=== PATIENT | female | born 1940 | race Caucasian/White ===

== ENCOUNTER → 2016-08-05 | Outpatient (CLI) | payer MEDICARE, OTHER ==
[~2016-08-05] MED LIST: AMIO200 PO; AMLO5TAB22 PO; APIX2.5T PO; APIX5 PO; DEXI60CA PO; FEMH0.5T PO; FLAG500T PO; GABA300C5 PO; HYDR25TA5 PO; LEVA500T PO; LEVO100T5 PO; LISI-363 PO; LISI-519 PO; MACR100C PO; METO100T9 PO; MIRA25TA PO; MIRA50TA PO; MODA200T12 PO; NITR1CAP36 PO; ONDA1TAB16 PO; PACE200T PO; PROV200T11 PO; SPIR25TA PO; TERI14TA PO; VAGI10TA VAGINAL; VESI10TA4 PO
[2016-08-05 11:33] LABS: EOSINOPHIL % 0.4 % (0.0-4.0); HEMATOCRIT 31.5 % (35.0-46.0); HEMO FLAGS DIFF FINAL; LYMPH % 31.7 % (9.0-44.0); LYMPHOCYTE # 1.3 TH/MM3 (1.0-4.8); MEAN CELL VOLUME 81.4 FL (80.0-100.0); MEAN CORPUSCULAR HEMOGLOBIN 26.4 PG (27.0-34.0); MEAN CORPUSCULAR HGB CONC 32.5 % (32.0-36.0); MONO % 18.7 % (0.0-8.0); NEUT % 48.2 % (16.0-70.0); PLATELET COUNT 224 TH/MM3 (150-450); RED BLOOD COUNT 3.87 MIL/MM3 (4.00-5.30); RED CELL DISTRIBUTION WIDTH 15.5 % (11.6-17.2); WHITE BLOOD COUNT 4.2 TH/MM3 (4.0-11.0)
[2016-08-05 11:58] LABS: INDIRECT BILIRUBIN 0.2 MG/DL (0.0-0.8); TOTAL BILIRUBIN ADULT 0.3 MG/DL (0.2-1.0)
== END ==
LOC: CLAB 11:03
PROVIDERS: ATTEND Psychiatry & Neurology Neurology
DX: D64.9 Anemia, unspecified (principal); K72.90 Hepatic failure, unspecified without coma
CPT/HCPCS: 36415; 80076; 85025

== ENCOUNTER 2016-08-13 15:04 | Observation (INO) | payer MEDICARE, OTHER ==
[~2016-08-13] VITALS: Ht 160 cm; Wt 56.0 kg
[~2016-08-13 15:04] MED LIST changes: -APIX2.5T PO; -DEXI60CA PO; -GABA300C5 PO; -HYDR25TA5 PO; -LEVO100T5 PO; -LISI-519 PO; -MIRA50TA PO; -MODA200T12 PO; -NITR1CAP36 PO; -ONDA1TAB16 PO; -PACE200T PO
[2016-08-13 15:06] VITALS: BP 169/76; PULSE 68; RESP 18; TEMP 98; O2SAT 96
[2016-08-13 15:21] VITALS: BP 135/63; PULSE 68; RESP 18; O2SAT 96
--- NOTE | 2016-08-13 15:55 | PD ---
HPI Chief Complaint: Syncope/Near-Syncope Time Seen by Provider: 15:49 Travel History International Travel<30 days: No Contact w/Intl Traveler<30days: No Traveled to known affect area: No History of Present Illness HPI 76-year-old female that presents to the ED for evaluation of syncope. 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 Patient apparently had an episode of dizziness, nausea and then all she remembers is waking up on the floor. Per patient she's had an episode like this about a year ago and she thinks that she attributed to that her blood pressure. Per patient she usually has very high blood pressure the 200s. She does have a history of MS. She denies any chest pain or shortness of breath. She denies any weakness other than some numbness and tingling that is chronic for her from her MS. She denies hitting her head but she doesn't remember what happened. Per patient a friend of hers was on the gift shop and is the one who called medical eval. She denies any symptoms at this time other than feeling very nauseous when she first got back to it. She does take a look was. She denies any palpitations. No chest pain. No other medical problem at this time. Per patient she did noted to her blood pressure today was "good". Per patient normally was the 200s but today was running in the 140s that she is concerned he might be the cause of it. She has PCP as well as her neurologist. She takes Eliquis for atrial fibrillation. 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) Endocrine: No Gastrointestinal Disorders: Yes GERD: Yes Genitourinary: No Hepatitis: No Hiatal Hernia: No Hypertension: Yes Immune Disorder: No Kidney Stones: No Musculoskeletal: Yes (MULTIPLE SCLEROSIS) Neurologic: Yes (HX OF MS) Psychiatric: No Reproductive: No Respiratory: No Immunizations Current: Yes Migraines: No Renal Failure: No Seizures: No Thyroid Disease: No Ulcer: Yes (BLEEDING ULCERS IN HX) Menopausal: Yes Dilation and Curettage (D&C): Yes Past Surgical History Abdominal Surgery: Yes (GALLBLADDER REMOVAL) AICD: No Cardiac Surgery: No Cholecystectomy: Yes Coronary Artery Bypass Graft: No Ear Surgery: No Endocrine Surgery: No Eye Surgery: Yes (CATARACT REMOVAL) Genitourinary Surgery: No Gynecologic Surgery: Yes Hysterectomy: No Joint Replacement: No Oral Surgery: No Pacemaker: No Thoracic Surgery: No Other Surgery: Yes Social History Alcohol Use: No Tobacco Use: No Substance Use: No Allergies-Medications (Allergen,Severity, Reaction): Coded Allergies: Enzymes Oral (Verified Allergy, Mild, RESP DISTRESS, 01/31/16) Reported Meds & Prescriptions Reported Meds & Active Scripts Active Reported Ondansetron (Ondansetron HCl) 4 Mg Tab 4 Mg PO Q8HR PRN Gabapentin 300 Mg Cap 300 Mg PO TID PRN Levothyroxine (Levothyroxine Sodium) 100 Mcg Tab 100 Mcg PO DAILY Dexilant (Dexlansoprazole) 60 Mg Cap 60 Mg PO DAILY Aubagio (Teriflunomide) 14 Mg Tab 14 Mg PO DAILY Nitrofurantoin Macrocrystal 100 Mg Cap 100 Mg PO DAILY Pacerone (Amiodarone HCl) 200 Mg Tab 100 Mg PO DAILY Metoprolol Succinate ER 24 HR (Metoprolol Succinate) 100 Mg Tab 100 Mg PO DAILY Myrbetriq (Mirabegron) 50 Mg Tab 50 Mg PO DAILY Eliquis (Apixaban) 2.5 Mg Tab 2.5 Mg PO BID Hydrochlorothiazide Unknown Strength Tab 1 Tab PO DAILY Modafinil 200 Mg Tab 200 Mg PO BID Review of Systems Except as stated in HPI: all other systems reviewed are Neg Physical Exam Narrative GENERAL: SKIN: Warm and dry. HEAD: Atraumatic. Normocephalic. EYES: Pupils equal and round 4 mm reactive to light and accommodation. No scleral icterus. No injection or drainage. ENT: No nasal bleeding or discharge. Mucous membranes pink and moist. Tongue is midline. No uvula deviation. NECK: Trachea midline. No JVD. CARDIOVASCULAR: Regular rate and rhythm. No murmurs, S3, S4. RESPIRATORY: No accessory muscle use. Clear to auscultation. Breath sounds equal bilaterally. GASTROINTESTINAL: Abdomen soft, non-tender, nondistended. Hepatic and splenic margins not palpable. MUSCULOSKELETAL: Extremities without clubbing, cyanosis, or edema. No obvious deformities. Full range of motion of the upper and lower extremities bilaterally. 2+ pulses bilaterally. Patient does have 1+ pitting edema on the left lower leg compared to the right. NEUROLOGICAL: Awake and alert. No obvious cranial nerve deficits. Motor grossly within normal limits. Five out of 5 muscle strength in the arms and legs. Normal speech. Gait normal. PSYCHIATRIC: Appropriate mood and affect; insight and judgment normal. Data Data Last Documented VS Vital Signs Date Time Temp Pulse Resp B/P Pulse Ox O2 Delivery O2 Flow Rate FiO2 08/13/16 16:29 77 18 159/67 75 18 152/66 83 18 120/60 08/13/16 16:01 95 Room Air 08/13/16 15:06 98.0 Orders Electrocardiogram (08/13/16 15:30) Complete Blood Count With Diff (08/13/16 15:30) Comprehensive Metabolic Panel (08/13/16 15:30) Ckmb (Isoenzyme) Profile (08/13/16 15:30) Troponin I (08/13/16 15:30) Prothrombin Time / Inr (Pt) (08/13/16 15:30) Act Partial Throm Time (Ptt) (08/13/16 15:30) Urinalysis - C+S If Indicated (08/13/16 15:30) Magnesium (Mg) (08/13/16 15:30) Thyroid Stimulating Hormone (08/13/16 15:30) Chest, Single Ap (08/13/16 15:30) Ct Brain W/O Iv Contrast(Rout) (08/13/16 15:30) Iv Access Insert/Monitor (08/13/16 15:30) Ecg Monitoring (08/13/16 15:30) Oximetry (08/13/16 15:30) Orthostatic Vital Signs (08/13/16 15:30) Sodium Chlor 0.9% 1000 Ml Inj (Ns 1000 M (08/13/16 16:00) Admit Order (Ed Use Only) (08/13/16 17:34) Labs Laboratory Tests Test 08/13/16 15:50 White Blood Count 4.7 TH/MM3 Red Blood Count 4.08 MIL/MM3 Hemoglobin 10.6 GM/DL Hematocrit 33.0 % Mean Corpuscular Volume 80.9 FL Mean Corpuscular Hemoglobin 26.0 PG Mean Corpuscular Hemoglobin 32.1 % Concent Red Cell Distribution Width 15.3 % Platelet Count 237 TH/MM3 Mean Platelet Volume 8.5 FL Neutrophils (%) (Auto) 40.8 % Lymphocytes (%) (Auto) 38.8 % Monocytes (%) (Auto) 18.9 % Eosinophils (%) (Auto) 0.6 % Basophils (%) (Auto) 0.9 % Neutrophils # (Auto) 1.9 TH/MM3 Lymphocytes # (Auto) 1.8 TH/MM3 Monocytes # (Auto) 0.9 TH/MM3 Eosinophils # (Auto) 0.0 TH/MM3 Basophils # (Auto) 0.0 TH/MM3 CBC Comment DIFF FINAL Differential Comment Prothrombin Time 9.9 SEC Prothromb Time International 0.9 RATIO Ratio Activated Partial 22.8 SEC Thromboplast Time Sodium Level 134 MEQ/L Potassium Level 4.5 MEQ/L Chloride Level 100 MEQ/L Carbon Dioxide Level 26.3 MEQ/L Anion Gap 8 MEQ/L Blood Urea Nitrogen 27 MG/DL Creatinine 1.31 MG/DL Estimat Glomerular Filtration 39 ML/MIN Rate Random Glucose 123 MG/DL Calcium Level 9.2 MG/DL Magnesium Level 2.3 MG/DL Total Bilirubin 0.4 MG/DL Aspartate Amino Transf 19 U/L (AST/SGOT) Alanine Aminotransferase 16 U/L (ALT/SGPT) Alkaline Phosphatase 109 U/L Total Creatine Kinase 83 U/L Troponin I LESS THAN 0.02 NG/ML Total Protein 7.7 GM/DL Albumin 3.3 GM/DL Thyroid Stimulating Hormone 4.850 uIU/ML [address] [place] [address] Medical Decision Making Medical Screen Exam Complete: Yes Emergency Medical Condition: Yes Medical Record Reviewed: Yes Interpretation(s) CBC & BMP Diagram 08/13/16 15:[address] 08/13/16 1530 Signed Impressions: Service Date/Time: Saturday, August 13, 2016 16:13 - CONCLUSION: No acute intracranial findings Marvin Jones MD Chest X-Ray 08/13/16 1530 Signed Impressions: Service Date/Time: Saturday, August 13, 2016 15:33 - CONCLUSION: 1. Bibasilar streakiness consistent with atelectasis, minimal infiltrates and/or scarring. 2. Degenerative changes involving the thoracic spine. Bradley Johnson MD troponin negative EKG shows sinus rhythm with no sign of ischemia or arrhythmia read by me and attending. CK MB negative Differential Diagnosis Syncope versus presyncope versus head injury versus bleeding versus ICH versus MS versus chest pain versus A. fib versus dehydration versus vasovagal episode versus hypotension Narrative Course 76-year-old female that presents to the ED for evaluation of syncope. Patient was properly examined and was found to have signs and symptoms consistent appears to be syncope. Labs and imaging ordered. Patient agrees for us to proceed with workup. Labs and imaging showed no sign of acute disease alert and positive for orthostatic hypotension. Case was discussed in my attending who agrees to admission to [facility]. Case was discussed with Dr. Ying who agrees admission to Dr. Knight service. This was discussed with the patient who agrees to admission. Diagnosis Primary Impression: Syncope Qualified Code: R55 - Syncope, unspecified syncope type Additional Impression: Orthostatic hypotension Admitting Information Admitting Physician Requests: Observation Harjinder Morris Aug 13, 2016 15:55
[2016-08-13] MEDS ORDERED: SODIUM CHLOR 0.9% 1000 ML INJ 1,000 ML IV ONE (16:00)
[2016-08-13 16:01] VITALS: RESP 20; O2SAT 95
--- NOTE | 2016-08-13 16:07 | RADRPT ---
EXAM DATE/TIME: 08/13/2016 15:33 [facility] COMPARISON: CHEST SINGLE AP, February 03, 2016, 15:15. INDICATIONS : Syncope. MEDICAL HISTORY : Atrial fibrillation SURGICAL HISTORY : None. ENCOUNTER: Initial ACUITY: 1 day PAIN SCORE: 0/10 LOCATION: Bilateral chest FINDINGS: The heart and mediastinal structures are normal. The pulmonary vascular pattern is normal. Bibasila r streakiness is noted consistent with atelectasis, mild infiltrates and/or scarring. Degenerative c hanges are noted throughout the thoracic spine. CONCLUSION: 1. Bibasilar streakiness consistent with atelectasis, minimal infiltrates and/or scarring. 2. Degenerative changes involving the thoracic spine. Bradley Johnson MD on August 13, 2016 at 15:58 Board Certified Radiologist. This report was verified electronically.
[2016-08-13] MEDS ORDERED: MODA200T12 PO (16:20)
[2016-08-13] MEDS ORDERED: APIX2.5T PO (16:20)
[2016-08-13] MEDS ORDERED: HYDR25TA5 PO (16:20)
[2016-08-13] MEDS ORDERED: GABA300C5 PO (16:21)
[2016-08-13] MEDS ORDERED: MIRA50TA PO (16:21)
[2016-08-13] MEDS ORDERED: ONDA1TAB16 PO (16:21)
[2016-08-13] MEDS ORDERED: DEXI60CA PO (16:21)
[2016-08-13] MEDS ORDERED: METO100T9 PO (16:21)
[2016-08-13] MEDS ORDERED: NITR1CAP36 PO (16:21)
[2016-08-13] MEDS ORDERED: LEVO100T5 PO (16:21)
[2016-08-13] MEDS ORDERED: TERI14TA PO (16:21)
[2016-08-13] MEDS ORDERED: PACE200T PO (16:21)
[2016-08-13 16:22] LABS: AUTOMATED NEUTROPHIL # 1.9 TH/MM3 (1.8-7.7); BASOPHIL % 0.9 % (0.0-2.0); EOSINOPHIL % 0.6 % (0.0-4.0); HEMO FLAGS DIFF FINAL; LYMPH % 38.8 % (9.0-44.0); LYMPHOCYTE # 1.8 TH/MM3 (1.0-4.8); MEAN CELL VOLUME 80.9 FL (80.0-100.0); MEAN CORPUSCULAR HGB CONC 32.1 % (32.0-36.0); MONO % 18.9 % (0.0-8.0); NEUT % 40.8 % (16.0-70.0); PLATELET COUNT 237 TH/MM3 (150-450); RED BLOOD COUNT 4.08 MIL/MM3 (4.00-5.30); RED CELL DISTRIBUTION WIDTH 15.3 % (11.6-17.2); WHITE BLOOD COUNT 4.7 TH/MM3 (4.0-11.0)
[2016-08-13 16:29] VITALS: BP_SYST 120; BP_SYST 152; BP_SYST 159; BP_DIAS 60; BP_DIAS 66; BP_DIAS 67; RESP 18
[2016-08-13 16:30] LABS: APTT (PATIENT) 22.8 SEC (24.3-30.1); INTERNATIONAL NORMALIZED RATIO 0.9 RATIO; PROTHROMBIN TIME - PATIENT 9.9 SEC (9.8-11.6)
--- NOTE | 2016-08-13 16:50 | RADRPT ---
EXAM DATE/TIME: 08/13/2016 16:13 [facility] COMPARISON: None currently available INDICATIONS : Possible syncopal episode today RADIATION DOSE: 32.15 CTDIvol (mGy) MEDICAL HISTORY : Multple sclerosis. Hypertension. Cardiovascular disease SURGICAL HISTORY : None. ENCOUNTER: Initial ACUITY: 1 day PAIN SCALE: 0/10 LOCATION: cranial TECHNIQUE: Multiple contiguous axial images were obtained of the head. Using automated exposure control and adj ustment of the mA and/or kV according to patient size, radiation dose was kept as low as reasonably a chievable to obtain optimal diagnostic quality images. FINDINGS: CEREBRUM: The ventricles are normal for age. No evidence of midline shift, mass lesion, hemorrhage or acute in farction. No extra-axial fluid collections are seen. POSTERIOR FOSSA: The cerebellum and brainstem are intact. The 4th ventricle is midline. The cerebellopontine angle i s unremarkable. EXTRACRANIAL: The visualized portion of the orbits is intact. SKULL: The calvaria is intact. No evidence of skull fracture. CONCLUSION: No acute intracranial findings Marvin Jones MD on August 13, 2016 at 16:46 Board Certified Radiologist. This report was verified electronically.
[2016-08-13 16:54] LABS: ALT (GPT) 16 U/L (10-53); ANION GAP 8 MEQ/L (5-15); AST (GOT) 19 U/L (15-37); BICARBONATE 26.3 MEQ/L (21.0-32.0); BLOOD UREA NITROGEN 27 MG/DL (7-18); CHLORIDE 100 MEQ/L (98-107); GLOMERULAR FILTRATION RATE 39 ML/MIN (>89); MAGNESIUM 2.3 MG/DL (1.5-2.5); POTASSIUM 4.5 MEQ/L (3.5-5.1); SODIUM (NA) 134 MEQ/L (136-145)
[2016-08-13 17:04] LABS: ALKALINE PHOSPHATASE 109 U/L (45-117); TOTAL BILIRUBIN ADULT 0.4 MG/DL (0.2-1.0)
[2016-08-13 17:28] LABS: CREATINE KINASE 83 U/L (26-192)
[2016-08-13] MEDS ORDERED: GABAPENTIN 300 MG CAP PO PRN (18:00)
[2016-08-13 18:16] LABS: BLOOD, URINE NEG (NEG); COMMENT (UR) CULT NOT INDICATED; CULTURE IF INDICATED CULT NOT INDICATED; GLUCOSE,URINE NEG (NEG); HYALINE CAST, URINE 4 /lpf (RARE); KETONE, URINE NEG (NEG); MUCUS URINE FEW /lpf (OCC); NITRITE,URINE NEG (NEG); PH, URINE 5.5 (5.0-8.5); SQUAMOUS EPITHELIAL CELL URINE <1 /hpf (0-5); URINE COLOR YELLOW (YELLW/STRAW)
[2016-08-13] MEDS ORDERED: PILL SPLITTER OTHER PRN (18:45)
[2016-08-13] MEDS: RESP: ALBUTEROL 2.5 MG/IPRATROPIUM 0.5 MG NEB (SCH) NEB (19:22)
[2016-08-13] MEDS: SODIUM CHLOR 0.9% 1000 ML INJ 1,000 ML IV SCH (19:22)
[2016-08-13 19:23] VITALS: BP 174/76; PULSE 75; RESP 18; O2SAT 97
--- NOTE | 2016-08-13 20:58 | RADRPT ---
EXAM DATE/TIME: 08/13/2016 20:13 [facility] COMPARISON: No previous studies available for comparison. INDICATIONS : Syncope. MEDICAL HISTORY : Multiple sclerosis. Hypertension. Gastroesophageal reflux disease. Afib. Ulcer. Arthritis. SURGICAL HISTORY : Cholecystectomy. Bilateral cataract removal. D&C. ENCOUNTER: Initial ACUITY: 1 day PAIN SCORE: 0/10 LOCATION: Bilateral neck PEAK SYSTOLIC VELOCITIES (cm/sec): ICA/CCA RATIO: Right: 0.9 Left: 1.2 ICA: Right: 93 Left: 135 CCA: Right: 105 Left: 108 ECA: Right: 161 Left: 172 VERTEBRAL: Right: 67 antegrade Left: 111 antegrade Elevated flow velocities and ICA/CCA ratios have been found to correlate with increased degrees of vessel stenosis, calculated as percentage of diameter relative to a normal segment of distal ICA/CCA FINDINGS: RIGHT CAROTID: Mild plaque. The waveforms are within normal limits. LEFT CAROTID: Moderate plaque. The waveforms are within normal limits. VERTEBRAL ARTERIES: Antegrade flow is seen in both vertebral arteries. MISCELLANEOUS: Right thyroid cystic nodules largest measuring 1.4 cm. CONCLUSION: 1. There is a 50-69% stenosis within the left internal carotid artery. 2. No hemodynamically significant stenosis in right carotid artery. Orlin Dunlap MD on August 13, 2016 at 20:55 Board Certified Radiologist. This report was verified electronically.
[2016-08-13] MEDS: MODAFINIL 200 MG TAB PO SCH (21:00)
[2016-08-13] MEDS: APIXABAN 2.5 MG TABLET PO SCH (21:39)
[2016-08-13] MEDS: methylPREDNISolone SOD SUCC 40 MG/1 ML VIAL IV PUSH SCH (21:40)
[2016-08-14 03:05] VITALS: BP 141/72; PULSE 74; RESP 18; TEMP 98.8; O2SAT 97
[2016-08-14 03:54] VITALS: BP 142/66; PULSE 85; RESP 18; TEMP 98.7; O2SAT 94
[2016-08-14] MEDS ORDERED: LEVOTHYROXINE SODIUM 100 MCG TAB PO SCH (06:00)
[2016-08-14] MEDS: SODIUM CHLOR 0.9% 1000 ML INJ 1,000 ML IV SCH (06:26)
[2016-08-14] MEDS: methylPREDNISolone SOD SUCC 40 MG/1 ML VIAL IV PUSH SCH (06:26)
[2016-08-14 07:25] VITALS: BP 178/81; PULSE 91; RESP 20; TEMP 98; O2SAT 95
[2016-08-14 07:37] LABS: HEMATOCRIT 31.4 % (35.0-46.0); MEAN CELL VOLUME 80.5 FL (80.0-100.0); MEAN CORPUSCULAR HEMOGLOBIN 25.9 PG (27.0-34.0); MEAN CORPUSCULAR HGB CONC 32.2 % (32.0-36.0); PLATELET COUNT 215 TH/MM3 (150-450); RED CELL DISTRIBUTION WIDTH 15.2 % (11.6-17.2); REVIEW FLAG FINAL; WHITE BLOOD COUNT 2.2 TH/MM3 (4.0-11.0)
[2016-08-14 07:55] LABS: BICARBONATE 25.7 MEQ/L (21.0-32.0); POTASSIUM 4.7 MEQ/L (3.5-5.1)
--- NOTE | 2016-08-14 08:50 | HHI.HP ---
HPI Service [facility] Primary Care Physician Serge Mora M.D. Admission Diagnosis syncope, orhtostatic hypotension Diagnoses: Chief Complaint: SYNCOPE (Anne Arreguin) Travel History International Travel<30 Days: No Contact w/Intl Traveler <30 Da: No Traveled to Known Affected Are: No (Anne Arreguin) History of Present Illness This is 76-year-old female patient with past medical history which includes multiple sclerosis, atrial fibrillation on Eliquis, hypertension, mitral valve prolapse. Patient presented to the emergency room for evaluation of syncope. 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 Event was witnessed, patient had syncopal episode. She remembers waking up on the floor. Patient denied any chest pain, no shortness of breath, no palpitations. States that she had a similar episode last year. 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 She last saw him a week ago as her blood pressure has been elevated up to 200s. She was started on hydrochlorothiazide. Indicates she hasn't been drinking as much water. Prior to this episode, she had been in her usual state of health, no fever, no chills, no cough, no sputum production, no diarrhea, no urinary symptoms. She has a history of MS and is on Aubagio. She receives outpatient physical therapy. Patient was evaluated in the emergency room, she was noted positive for orthostasis. Creatinine was mildly elevated. Patient indicates that she has been recently diagnosed with renal insufficiency and was referred to follow-up with Dr. Agarwal, has an appointment for tomorrow. Patient has history of neurogenic bladder, requires self-catheterization. She has not noticed any change in her urine output. Patient was given 2 L of IV fluids. CT of the head was negative. Chest x-ray showed bibasilar streakiness consistent with atelectasis, no infiltrates. Blood pressure is 178/81 this morning, heart rate is 91. She remained sinus rhythm, no atrial fibrillation noted. Indicates that she is feeling better, she feels tired but otherwise has no other symptoms. Patient is admitted for further evaluation and treatment. ( Anne Arreguin) Review of Systems Constitutional: COMPLAINS OF: Dizziness, DENIES: Diaphoretic episodes, Fatigue , Fever, Weight gain, Weight loss, Chills, Change in appetite, Night Sweats Endocrine: DENIES: Abnorml menstrual pattern, Heat/cold intolerance, Polydipsia , Polyuria, Polyphagia Eyes: DENIES: Blurred vision, Diplopia, Eye inflammation, Eye pain, Vision loss , Photosensitivity, Double Vision Ears, nose, mouth, throat: DENIES: Tinnitus, Hearing loss, Vertigo, Nasal discharge, Oral lesions, Throat pain, Hoarseness, Ear Pain, Running Nose, Epistaxis, Sinus Pain, Toothache, Odynophagia Respiratory: DENIES: Apneas, Cough, Snoring, Wheezing, Hemoptysis, Sputum production, Shortness of breath Cardiovascular: COMPLAINS OF: Syncope, DENIES: Chest pain, Palpitations, Dyspnea on Exertion, PND, Lower Extremity Edema, Orthopnea, Claudication Gastrointestinal: DENIES: Abdominal pain, Black stools, Bloody stools, Constipation, Diarrhea, Nausea, Vomiting, Difficulty Swallowing, Anorexia Genitourinary: COMPLAINS OF: Urinary incontinence, DENIES: Abnormal vaginal bleeding, Dysmenorrhea, Dyspareunia, Sexual dysfunction, Urinary frequency, Urgency, Hematuria, Dysuria, Nocturia, Vaginal discharge Musculoskeletal: DENIES: Joint pain, Muscle aches, Stiffness, Joint Swelling, Back pain, Neck pain Integumentary: DENIES: Abnormal pigmentation, Pruritus, Rash, Nail changes, Breast masses, Breast skin changes, Nipple discharge Hematologic/lymphatic: DENIES: Bruising, Lymphadenopathy Immunologic/allergic: DENIES: Eczema, Urticaria Neurologic: COMPLAINS OF: Abnormal gait, Poor Balance, DENIES: Headache, Localized weakness, Paresthesias, Seizures, Speech Problems, Tremor Psychiatric: DENIES: Anxiety, Confusion, Mood changes, Depression, Hallucinations, Agitation, Suicidal Ideation, Homicidal Ideation, Delusions ( Anne Arreguin) Past Family Social History Past Medical History multiple sclerosis atrial fibrillation on Eliquis Admitted and 2016 with GI bleeding, fine with pseudomembranous colitis, 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 Multiple Sclerosis (resulting in urinary self cath, and ataxia of gait with weak left leg) Hypertension Mitral Valve Prolapse Spinal Stenosis Chronic Fatigue Chronic Diarrhea Past Surgical History Cholecystectomy, D&C S/P EGD/colonoscopy on (02/05/16) ----> pseudomembranous colitis, BX showed acute ischemia/ EGD ----> AVM in the 3rd part of the duodenum, s/p cautery. Left Breast Biopsy-Revealed benign mass Reported Medications Reported Meds & Active Scripts Active Reported Ondansetron (Ondansetron HCl) 4 Mg Tab 4 Mg PO Q8HR PRN Gabapentin 300 Mg Cap 300 Mg PO TID PRN Levothyroxine (Levothyroxine Sodium) 100 Mcg Tab 100 Mcg PO DAILY Dexilant (Dexlansoprazole) 60 Mg Cap 60 Mg PO DAILY Aubagio (Teriflunomide) 14 Mg Tab 14 Mg PO DAILY Nitrofurantoin Macrocrystal 100 Mg Cap 100 Mg PO DAILY Pacerone (Amiodarone HCl) 200 Mg Tab 100 Mg PO DAILY Metoprolol Succinate ER 24 HR (Metoprolol Succinate) 100 Mg Tab 100 Mg PO DAILY Myrbetriq (Mirabegron) 50 Mg Tab 50 Mg PO DAILY Eliquis (Apixaban) 2.5 Mg Tab 2.5 Mg PO BID Hydrochlorothiazide Unknown Strength Tab 1 Tab PO DAILY Modafinil 200 Mg Tab 200 Mg PO BID (Anne Arreguin) Allergies: Coded Allergies: Enzymes Oral (Verified Allergy, Mild, RESP DISTRESS, 01/31/16) Active Ordered Medications Inpatient Medications Albuterol/ Ipratropium (Duoneb Neb) 1 ampule Q6HR WHILE AWAKE NEB NEB Last administered on 08/13/16 19:22; Start 08/13/16 at 20:00 Amiodarone HCl (Cordarone) 100 mg DAILY PO ; Start 08/14/16 at 09:00 Apixaban (Eliquis) 2.5 mg BID PO Last administered on 08/13/16 21:39; Start at 21:00 Gabapentin (Neurontin) 300 mg TID PRN PO PAIN SCALE 1 TO 10; Start 08/13/16 at 18:00 Levothyroxine Sodium (Synthroid) 100 mcg DAILY@06 PO Last administered on 06:26; Start 08/14/16 at 06:00 Methylprednisolone Sodium Succinate (SoluMEDROL INJ) 40 mg Q8HR IV PUSH Last administered on 08/14/16 06:26; Start 08/13/16 at 22:00 Metoprolol Succinate (Toprol Xl) 100 mg DAILY PO ; Start 08/14/16 at 09:00 Miscellaneous (Pill Splitter) 1 ea UNSCH PRN OTHER SEE LABEL COMMENTS; Start at 18:45 Modafinil (Provigil) 200 mg BID PO ; Start 08/13/16 at 21:00 Pantoprazole Sodium (Protonix) 40 mg DAILY PO ; Start 08/14/16 at 09:00 Patient Own Medication PT OWN MED: (Teriflunomide (Aubagio)... 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 Uses [employer] at [employer] once a week Denies tobacco use now or in the past Denies illicit drug use Very little ETOH use (Anne Arreguin) Physical Exam Vital Signs Vital Signs Date Time Temp Pulse Resp B/P Pulse Ox O2 Delivery O2 Flow Rate FiO2 08/14/16 07:25 98.0 91 20 178/81 95 08/14/16 03:54 98.7 85 18 142/66 94 08/14/16 03:05 98.8 74 18 141/72 97 08/13/16 19:23 75 18 174/76 97 Room Air 08/13/16 16:29 77 18 159/67 75 18 152/66 83 18 120/60 08/13/16 16:01 20 95 Room Air 08/13/16 15:21 68 18 135/63 96 Room Air 08/13/16 15:20 69 18 96 Room Air 08/13/16 15:06 98.0 68 18 169/76 96 Physical Exam GENERAL: This is a well-nourished, well-developed patient, in no apparent distress. SKIN: No rashes, ecchymoses or lesions. Cool and dry. HEAD: Atraumatic. Normocephalic. No temporal or scalp tenderness. EYES: Pupils equal round and reactive. Extraocular motions intact. No scleral icterus. No injection or drainage. ENT: Nose without bleeding, purulent drainage or septal hematoma. Throat without erythema, tonsillar hypertrophy or exudate. Uvula midline. Airway patent. NECK: Trachea midline. No JVD or lymphadenopathy. Supple, nontender, no meningeal signs. CARDIOVASCULAR: Regular rate and rhythm without murmurs, gallops, or rubs. RESPIRATORY: Clear to auscultation. Breath sounds equal bilaterally. No wheezes , rales, or rhonchi. GASTROINTESTINAL: Abdomen soft, non-tender, nondistended. No hepato-splenomegaly , or palpable masses. No guarding. MUSCULOSKELETAL: Extremities without clubbing, cyanosis, or edema. No joint tenderness, effusion, or edema noted. No calf tenderness. Negative Homans sign bilaterally. NEUROLOGICAL: Awake, alert oriented 3. No focal deficits. Bilateral lower extremities weaker, 4 out of 5 Laboratory Laboratory Tests Test 08/13/16 08/13/16 08/14/16 15:50 18:00 06:30 White Blood Count 4.7 2.2 Red Blood Count 4.08 3.90 Hemoglobin 10.6 10.1 Hematocrit 33.0 31.4 Mean Corpuscular Volume 80.9 80.5 Mean Corpuscular Hemoglobin 26.0 25.9 Mean Corpuscular Hemoglobin 32.1 32.2 Concent Red Cell Distribution Width 15.3 15.2 Platelet Count 237 215 Mean Platelet Volume 8.5 7.9 Neutrophils (%) (Auto) 40.8 Lymphocytes (%) (Auto) 38.8 Monocytes (%) (Auto) 18.9 Eosinophils (%) (Auto) 0.6 Basophils (%) (Auto) 0.9 Neutrophils # (Auto) 1.9 Lymphocytes # (Auto) 1.8 Monocytes # (Auto) 0.9 Eosinophils # (Auto) 0.0 Basophils # (Auto) 0.0 CBC Comment DIFF FINAL Differential Comment Prothrombin Time 9.9 Prothromb Time International 0.9 Ratio Activated Partial 22.8 Thromboplast Time Sodium Level 134 135 Potassium Level 4.5 4.7 Chloride Level 100 103 Carbon Dioxide Level 26.3 25.7 Anion Gap 8 6 Blood Urea Nitrogen 27 19 Creatinine 1.31 0.89 Estimat Glomerular Filtration 39 61 Rate Random Glucose 123 138 Calcium Level 9.2 8.5 Magnesium Level 2.3 Total Bilirubin 0.4 Aspartate Amino Transf 19 (AST/SGOT) Alanine Aminotransferase 16 (ALT/SGPT) Alkaline Phosphatase 109 Total Creatine Kinase 83 Troponin I LESS THAN 0.02 Total Protein 7.7 Albumin 3.3 Thyroid Stimulating Hormone 4.850 3rd Gen Urine Color YELLOW Urine Turbidity CLEAR Urine pH 5.5 Urine Specific [place] 1.008 Urine Protein NEG Urine Glucose (UA) NEG Urine Ketones NEG Urine Occult Blood NEG Urine Nitrite NEG Urine Bilirubin NEG Urine Urobilinogen LESS THAN 2.0 Urine Leukocyte Esterase NEG Urine RBC LESS THAN 1 Urine WBC LESS THAN 1 Urine Squamous Epithelial <1 Cells Urine Hyaline Casts 4 Urine Mucus FEW Microscopic Urinalysis Comment CULT NOT INDICATED (Anne Arreguin) Result Diagram: 08/14/16 0630 08/14/16 0630 Imaging Last [address] 08/13/16 1530 Signed Impressions: Service Date/Time: Saturday, August 13, 2016 16:13 - CONCLUSION: No acute intracranial findings Marvin Jones MD Chest X-Ray 08/13/16 1530 Signed Impressions: Service Date/Time: Saturday, August 13, 2016 15:33 - CONCLUSION: 1. Bibasilar streakiness consistent with atelectasis, minimal infiltrates and/or scarring. 2. Degenerative changes involving the thoracic spine. Bradley Johnson MD (Anne Arreguin) Assessment and Plan Problem List: (1) Syncope (2) Orthostatic hypotension (3) Multiple sclerosis (4) Hypertension (5) Paroxysmal a-fib (6) Renal insufficiency (7) Dehydration (8) Hypothyroid Assessment and Plan Admit to Dr. Knight 76-year-old female with past medical history of A. fib, MS. Patient presented to the emergency room after syncopal episode, possible orthostasis. Was recently started on hydrochlorothiazide and not drinking enough water, possibly dehydrated. Noted with elevated creatinine. -Continuous cardiac telemetry Continue with IV fluids Orthostatics every shift Hold HCTZ for now. -Consult Dr. Zambrano for evaluation. -We'll litigation counsel echocardiogram, patient states she recently had one Carotid ultrasound has been done, results noted Renal insufficiency, elevated creatinine, possibly secondary to dehydration, has underlying chronic kidney disease Continue with IV fluids BMP reviewed, creatinine improved History of A. fib, currently sinus rhythm, stable Continue with amiodarone Continue with Toprol Continue with Eliquis Multiple sclerosis, stable Continue with home medications Physical therapy for evaluation Hypertension, blood pressure is noted elevated Resume home medications Hypothyroid Continue home medications Home medications reviewed, initiated as indicated Continue with Eliquis for DVT prophylaxis Plan of care has been discussed with the patient, attending and registered nurse. Further management of the patient be dependent on the hospital course This patient was seen by myself and Dr. Knight, this H&P is written on his behalf Addendum -Patient evaluated by cardiology, input appreciated. -Patient likely vasovagal secondary to dehydration Medications adjusted Patient ambulated with physical therapy, tolerated well, no episodes of syncope , no dizziness Holter monitor ordered Per cardiology, if patient tolerated ambulation well, she can be discharged Came back to evaluate patient, patient stable, tolerated ambulation well. Holter has been applied. Patient stable for discharge -Patient discharged home in stable condition, instructed to keep hydrated, change positions slowly. (Anne Arreguin) Assessment and Plan Pt seen and examined as above this am chart was reviewed meds labs and rad data was reviewed dw pt dw hat cone inspector about plan of care dw rn (Kaley Knight MD) Problem Qualifiers (1) Syncope: Qualified Code: R55 - Syncope, unspecified syncope type (2) Hypertension: Qualified Code: I10 - Essential hypertension (3) Hypothyroid: Qualified Code: E03.9 - Hypothyroidism, unspecified type Anne Arreguin Aug 14, 2016 08:50 Kaley Knight MD Aug 14, 2016 18:48
[2016-08-14] MEDS ORDERED: MIRABEGRON 50 MG PO SCH (09:00)
[2016-08-14] MEDS ORDERED: TERIFLUNOMIDE 14 MG PO SCH (09:00)
[2016-08-14] MEDS ORDERED: METOPROLOL SUCCINATE 50 MG EXTENDED RELEASE TAB PO SCH (09:00)
[2016-08-14] MEDS ORDERED: PANTOPRAZOLE SOD 40 MG DELAYED RELEASE TAB PO SCH (09:00)
[2016-08-14] MEDS ORDERED: AMIODARONE 200 MG TAB PO SCH (09:00)
[2016-08-14] MEDS: RESP: ALBUTEROL 2.5 MG/IPRATROPIUM 0.5 MG NEB (SCH) NEB (09:03)
[2016-08-14] MEDS: MODAFINIL 200 MG TAB PO SCH (09:56)
[2016-08-14] MEDS: APIXABAN 2.5 MG TABLET PO SCH (09:56)
[2016-08-14 10:02] VITALS: BP_SYST 163; BP_SYST 169; BP_SYST 171; BP_DIAS 71; BP_DIAS 74; PULSE 98; RESP 18; O2SAT 95
[2016-08-14 11:24] VITALS: BP 165/74; PULSE 93; RESP 20; TEMP 98.1; O2SAT 95
--- NOTE | 2016-08-14 12:08 | EKG ---
Date Performed: 08/13/2016 Time Performed: 15:58:49 PTAGE: 76 years EKG: Sinus rhythm POSSIBLE LEFT ATRIAL ENLARGEMENT SEPTAL MYOCARDIAL INFARCTION SLIGHT NONSPECIFIC ST ABNORMALITY Comp ared to previous tracing, patient is no longer in rapid atrial fibrillation. ABNORMAL ECG PREVIOUS TRACING : 02/02/2016 06.10 DOCTOR: Tan Serrano Interpretating Date/Time 08/14/2016 12:08:08
[2016-08-14] MEDS ORDERED: HYDR25TA5 PO (15:05)
[2016-08-14] MEDS ORDERED: LISI-519 PO (15:05)
--- NOTE | 2016-08-14 15:05 | HHI.DCPOC ---
Discharge Care Plan Diagnosis: (1) Orthostatic hypotension (2) Hypertension (3) Multiple sclerosis (4) Chest pain (5) Hypertension Your Health Problems Are: Anxiety Loss of Movements Shortness of Breath Goals to Promote Your Health * To prevent worsening of your condition and complications * To maintain your health at the optimal level Directions to Meet Your Goals Take your medications as prescribed Follow your dietary instruction Follow activity as directed Keep your appointments as scheduled Take your immunizations and boosters as scheduled If your symptoms worsen call your PCP, if no PCP go to Urgent Care Center or Emergency Room Smoking is Dangerous to Your Health. Avoid second hand smoke Call the 24-hour hour crisis hotline for domestic abuse at Anne Arreguin Aug 14, 2016 15:05
--- NOTE | 2016-08-14 15:56 | MB ---
cc: TESHA MITTAL M.D. DATE OF CONSULTATION: 08/14/2016. REASON FOR CONSULTATION: Syncope and orthostatic hypotension. HISTORY OF PRESENT ILLNESS: Ms. Celaya is a 76-year-old white female well-known to me with history of longstanding hypertension, paroxysmal atrial fibrillation, chronic anemia, GI bleeding, hypothyroidism and chronic nausea and weight loss issues. 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 She was sitting down and became syncopal. She did not injure herself and she awoke quickly but was taken to the emergency room for evaluation where she was found to have some orthostasis. She has been hydrated with intravenous fluids overnight and she is feeling better today. She denies any recurrent lightheadedness or syncope since admission yesterday. She has not been out of bed yet. She denies chest pains or shortness of breath. Her workup thus far on telemetry monitoring has been negative. She denies any nausea, vomiting or diarrhea. She says she tries to keep herself well-hydrated, although her BUN was moderately elevated on admission yesterday. She has been taking all of her medication as directed. She does not smoke. PAST MEDICAL HISTORY: As outlined above. Additionally: 1. She has history of multiple sclerosis. 2. Atonic urinary bladder requiring self catheterization. 3. Denies history of myocardial infarction, heart failure or stroke. 4. She had history of mitral valve prolapse and mitral regurgitation. PAST SURGICAL HISTORY: 1. D&C. 2. Breast biopsy. SOCIAL HISTORY: Noncontributory. MEDICATIONS: 1. Amiodarone 100 milligrams daily. 2. Levothyroxine 100 micrograms daily. 3. Hydrochlorothiazide 25 milligrams daily. 4. Lisinopril 10 milligrams daily. 5. Metoprolol succinate 100 milligrams daily. 6. Dexilant 60 milligrams daily. 7. Gabapentin 300 milligrams three times a day PRN. 8. Ondansetron 4 milligrams q. 8 hours PRN. 9. Myrbetriq 50 milligrams daily. 10. Eliquis 2.5 milligrams twice a day. 11. Modafinil 200 milligrams twice a day. ALLERGIES: SHE DOES HAVE AN ALLERGY TO FLAGYL. FAMILY HISTORY: Her family history is noncontributory. REVIEW OF SYSTEMS: Denies lower extremity edema or claudication. Denies palpitations. Denies fevers, chills, night sweats, nausea, or any diarrhea. She denies any recent bleeding problems. Denies any clotting problems. Except for that mentioned in the history of present illness, her complete twelve-point review of systems is otherwise negative. PHYSICAL EXAMINATION: GENERAL: An elderly thin white female lying in bed in no distress at this time. VITAL SIGNS: Blood pressure is 165/74 mmHg, heart rate 93 and regular, respiratory rate is 20, temperature 98.1, oxygen saturation 95% on room air. As mentioned, yesterday evening she did have some mild orthostatic changes, her blood pressure went from 159/67 supine to 120/60 standing, although that apparently was not symptomatic. Orthostatic pressures today this morning have been normal. HEAD, EYES, EARS, NOSE, THROAT: The head is normocephalic and atraumatic. Pupils are equal round and react to light. Sclerae anicteric. Extraocular movements intact. NECK: The neck is supple. There is no adenopathy. No jugular venous distension at 90 degrees. Carotid upstrokes normal. No bruits. Thyroid exam is normal. LUNGS: Clear. HEART: PMI not displaced. S1 and S2 are normal. I hear no murmurs, gallops, clicks or rubs. ABDOMEN: Bowel sounds present, soft, nontender, no hepatosplenomegaly, masses or bruits. EXTREMITIES: No cyanosis, clubbing or edema. Perfusion adequate in the upper and lower extremities. There are no femoral bruits. NEUROLOGIC: Exam is grossly intact. EKGS: An EKG from yesterday shows a sinus rhythm, rate 71, poor R-wave progression, consider old septal infarct, abnormal. Compared to an EKG available from my office from August 05, 2016, there is no change. IMAGING STUDIES: Chest x-ray: Basilar streakiness consistent with atelectasis, minimal infiltrate and/or scarring, degenerative changes involving the thoracic spine. Head CT shows no acute intracranial findings. Carotid ultrasound: 50-69% stenosis within left internal carotid artery. No hemodynamically significant stenosis on the right. LABORATORY DATA: CBC white count of 2.2, hemoglobin 10.1, hematocrit 31.4, platelet count 215,000. Coags are normal. Electrolytes: Sodium 135, potassium 4.7, chloride 103, CO2 25.7. Her BUN yesterday on arrival was 27 with a creatinine of 1.31 and these are now 19 and 0.89, respectively. Glucose 138, calcium 8.5. TSH 4.85. Troponin I less than 0.02 with a CPK of 83 last night. IMPRESSION: 1. Syncope likely secondary to vasovagal etiology currently resolved. 2. Mild orthostatic hypotension, possibly related to dehydration. 3. History of paroxysmal atrial fibrillation currently in sinus rhythm. 4. Chronic anemia. 5. Hypothyroidism on replacement. 6. Long-term anticoagulation therapy with Eliquis. 7. Hypertensive heart disease. 8. Multiple sclerosis. RECOMMENDATIONS: 1. The patient will discontinue intravenous fluids at this time and resume all of her home medications. 2. I have changed her lisinopril to 5 milligrams p.o. twice a day and she will keep herself well-hydrated. 3. Ambulate over the next hour or two with assistance. 4. If she is doing fine, she can be discharged safely to home. 5. I will plan follow up with her some time next week. Will recheck her labs to be sure she is not getting prerenal and make adjustments in her medications if she is becoming orthostatic. I have discussed the plans with the patient and her in detail. I have asked her not to drive until I see her next week and will place a 24 Holter monitor on her upon discharge. I have discussed the case in detail with the nursing staff in the emergency room. Thank you for allowing me to participate in the care of this patient. MD FRANCISCO Buckley/BLADE /12:17 PM /3:41 PM
[2016-08-14] MEDS ORDERED: LISINOPRIL 5 MG TAB PO SCH (21:00)
[2016-08-15] MEDS ORDERED: HYDROCHLOROTHIAZIDE 25 MG TAB PO SCH (09:00)
--- NOTE | 2016-08-16 16:13 | HM ---
Date Performed: 08/14/2016 Time Performed: 13:20:00 HOOKUP DATE: 08/14/16 01:20:00 PM Rosaura ANALYSIS START TIME: 08/14/2016 1:25:00 PM ANALYSIS END TIME: 08/15/2016 1:29:00 PM PATIENT AGE: 76 PATIENT HEIGHT: 63 PATIENT WEIGHT: 123 DRUG LIST PATIENT DIAGNOSIS: SYNCOPE TEST NARRATIVE: The patient's average heart rate was 76 BPM. No episodes of tachycardia wer e noted. No episodes of bradycardia were noted. No pauses exceeding 2.0 seconds were noted. 2 ventricular ectopics, which represented < 1% of the total beat count, were noted. The highest vent ricular ectopic frequency occurred from 04:00 PM to 05:00 PM Rosaura. During this time 1 VE(s) occurred. Ventricular ectopics were observed as 2 isolated beat(s) only. No couplets or runs were noted. No supraventricular ectopics were noted. In channel 1, a single episode of ST depression (define d as -1.0 mm or more) occurred at 02:15:43 PM Rosaura with a maximum depression of -1.5 mm. No episodes of ST depression (defined as -1.0 mm or more) were noted in channel 2. No episodes of ST depression (defined as -1.0 mm or more) were noted in channel 3. TEST INTERPRETATION: Agree with interpretation, no alternate interpretation needed Signed by : David Peters
== END 2016-08-14 16:34 | disposition home or self-care (01) ==
LOC: NEPC 15:04 → NEDH 17:37 → NEPGCP 23:42
PROVIDERS: ADMIT Specialist; ATTEND Specialist
DX: I95.1 Orthostatic hypotension (principal); E86.0 Dehydration; G35 Multiple sclerosis; R07.89 Other chest pain; I11.9 Hypertensive heart disease without heart failure; N28.9 Disorder of kidney and ureter, unspecified; I48.0 Paroxysmal atrial fibrillation; I34.0 Nonrheumatic mitral (valve) insufficiency; D64.9 Anemia, unspecified; E03.9 Hypothyroidism, unspecified; J98.11 Atelectasis; K21.9 Gastro-esophageal reflux disease without esophagitis; H91.90 Unspecified hearing loss, unspecified ear; M19.90 Unspecified osteoarthritis, unspecified site; N31.9 Neuromuscular dysfunction of bladder, unspecified; Z79.01 Long term (current) use of anticoagulants
CPT/HCPCS: 70450; 71010; 80048; 80053; 81001; 82550; 83735; 84443; 84484; 85025; 85027; 85610; 85730; 93005; 93225; 93226; 93880; 94664; 96360; 97162; 99285; G0378; G8987; G8988; J2920; J7030

== ENCOUNTER → 2016-08-25 | Outpatient (CLI) | payer MEDICARE, OTHER ==
[~2016-08-25] MED LIST changes: -AMIO200 PO; -AMLO5TAB22 PO; +APIX2.5T PO; -APIX5 PO; +DEXI60CA PO; -FEMH0.5T PO; -FLAG500T PO; +GABA300C5 PO; +HYDR25TA5 PO; -LEVA500T PO; +LEVO100T5 PO; -LISI-363 PO; +LISI-519 PO; -MACR100C PO; -MIRA25TA PO; +MIRA50TA PO; +MODA200T12 PO; +ONDA1TAB16 PO; +PACE200T PO; -PROV200T11 PO; -SPIR25TA PO; -VAGI10TA VAGINAL; -VESI10TA4 PO
[2016-08-25 11:04] LABS: BICARBONATE 28.1 MEQ/L (21.0-32.0); POTASSIUM 4.4 MEQ/L (3.5-5.1)
== END ==
LOC: CLAB 09:34
PROVIDERS: ATTEND Internal Medicine Interventional Cardiology
DX: I48.0 Paroxysmal atrial fibrillation (principal); I11.9 Hypertensive heart disease without heart failure; Z79.01 Long term (current) use of anticoagulants
CPT/HCPCS: 36415; 80048

== ENCOUNTER 2016-10-21 14:09 | Emergency (ER) | payer MEDICARE, OTHER ==
[~2016-10-21] VITALS: Ht 160 cm; Wt 56.0 kg
[2016-10-21 14:09] VITALS: BP_SYST 104; BP_SYST 115; BP_SYST 123; BP_SYST 124; BP_SYST 129; BP_DIAS 51; BP_DIAS 52; BP_DIAS 58; BP_DIAS 60; PULSE 79; RESP 14; RESP 16; TEMP 98.7; O2SAT 98
[2016-10-21] MEDS ORDERED: SODIUM CHLOR 0.9% 1000 ML INJ 1,000 ML IV ONE ×2 (14:19→15:45)
[2016-10-21] MEDS ORDERED: SODIUM CHLORIDE 0.9% FLUSH 10 ML FLUSH IVF PRN (14:30)
[2016-10-21] MEDS ORDERED: ONDANSETRON HCL 4 MG/2 ML VIAL IVP ONE (14:30)
--- NOTE | 2016-10-21 14:43 | PD ---
HPI Chief Complaint: near-syncope Time Seen by Provider: 14:19 Travel History International Travel<30 days: No Contact w/Intl Traveler<30days: No Traveled to known affect area: No History of Present Illness HPI The patient is a 76-year-old female who presents to the emergency department for near syncope. The patient states over the last several weeks she has had a problem with her blood pressure, has been running on the low side. The patient states one week ago she felt lightheaded, dizzy, and felt like her blood pressure was low. The patient was at physical therapy with her earlier today when they went to eat at [employer] and she suddenly felt lightheaded and dizzy. The patient states she felt like she is going to pass out and another individual caught her, prior to falling. The patient denies any trauma to the head or neck. The patient denies any loss of consciousness. The patient does complain of lightheadedness and dizziness that is worse when going from a lying to a sitting position. The patient has been seen by her coiler for this in the past, Dr. Campbell, who decreased her hydrochlorothiazide from 25 mg daily to 12.5 mg daily. The patient denies any chest pain, shortness breath, however, did note mild nausea earlier today. She denies any vomiting or abdominal pain. 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) Endocrine: No Gastrointestinal Disorders: Yes GERD: Yes Genitourinary: No Hepatitis: No Hiatal Hernia: No Hypertension: Yes Immune Disorder: No Kidney Stones: No Musculoskeletal: Yes (MULTIPLE SCLEROSIS) Neurologic: Yes (HX OF MS) Psychiatric: No Reproductive: No Respiratory: No Immunizations Current: Yes Migraines: No Renal Failure: No Seizures: No Thyroid Disease: No Ulcer: Yes (BLEEDING ULCERS IN HX) Menopausal: Yes Dilation and Curettage (D&C): Yes Past Surgical History Abdominal Surgery: Yes (GALLBLADDER REMOVAL) AICD: No Cardiac Surgery: No Cholecystectomy: Yes Coronary Artery Bypass Graft: No Ear Surgery: No Endocrine Surgery: No Eye Surgery: Yes (CATARACT REMOVAL) Genitourinary Surgery: No Gynecologic Surgery: Yes Hysterectomy: No Joint Replacement: No Oral Surgery: No Pacemaker: No Thoracic Surgery: No Other Surgery: Yes Social History Alcohol Use: No Tobacco Use: No Substance Use: No Allergies-Medications (Allergen,Severity, Reaction): Coded Allergies: Enzymes Oral (Verified Allergy, Mild, RESP DISTRESS, 10/21/16) Reported Meds & Prescriptions Reported Meds & Active Scripts Active Hydrochlorothiazide 25 Mg Tab 25 Mg PO DAILY Lisinopril 5 Mg Tab 5 Mg PO Q12HR Reported Ondansetron (Ondansetron HCl) 4 Mg Tab 4 Mg PO Q8HR PRN Gabapentin 300 Mg Cap 300 Mg PO TID PRN Levothyroxine (Levothyroxine Sodium) 100 Mcg Tab 100 Mcg PO DAILY Dexilant (Dexlansoprazole) 60 Mg Cap 60 Mg PO DAILY Aubagio (Teriflunomide) 14 Mg Tab 14 Mg PO DAILY Pacerone (Amiodarone HCl) 200 Mg Tab 100 Mg PO DAILY Metoprolol Succinate ER 24 HR (Metoprolol Succinate) 100 Mg Tab 100 Mg PO DAILY Myrbetriq (Mirabegron) 50 Mg Tab 50 Mg PO DAILY Eliquis (Apixaban) 2.5 Mg Tab 2.5 Mg PO BID Modafinil 200 Mg Tab 200 Mg PO BID Review of Systems Except as stated in HPI: all other systems reviewed are Neg HENT: Positive: Lightheadedness Cardiovascular: Positive: Syncope, No: Chest Pain or Discomfort, Tachycardia, Diaphoresis Respiratory: No: Shortness of Breath Gastrointestinal: Positive: Nausea, No: Vomiting, Abdominal Pain Musculoskeletal: Positive: Weakness Neurologic: Positive: Weakness, Dizziness Physical Exam Narrative GENERAL: Awake, alert, very pleasant 76-year-old female who appears her stated age and is in no acute respiratory distress. SKIN: Warm and dry. HEAD: Atraumatic. Normocephalic. EYES: Pupils equal and round. No injection or drainage. ENT: No nasal bleeding or discharge. Mucous membranes pink and moist. NECK: Trachea midline. No JVD. CARDIOVASCULAR: Regular rate and rhythm. No murmur appreciated. Heart rate in the 70s. RESPIRATORY: No accessory muscle use. Clear to auscultation. Breath sounds equal bilaterally. GASTROINTESTINAL: Abdomen soft, non-tender, nondistended. No rebound tenderness. MUSCULOSKELETAL: No obvious deformities. No clubbing. No cyanosis. No edema. NEUROLOGICAL: Awake and alert. No obvious cranial nerve deficits. Motor grossly within normal limits. Normal speech. Nonfocal. PSYCHIATRIC: Appropriate mood and affect; insight and judgment normal. Data Data Last Documented VS Vital Signs Date Time Temp Pulse Resp B/P Pulse Ox O2 Delivery O2 Flow Rate FiO2 10/21/16 14:09 98.7 79 14 123/58 98 129/60 Orders Complete Blood Count With Diff (10/21/16 14:19) Comprehensive Metabolic Panel (10/21/16 14:19) Magnesium (Mg) (10/21/16 14:19) Act Partial Throm Time (Ptt) (10/21/16 14:19) Prothrombin Time / Inr (Pt) (10/21/16 14:19) Ecg Monitoring (10/21/16 14:19) Iv Access Insert/Monitor (10/21/16 14:19) Oximetry (10/21/16 14:19) Ondansetron Inj (Zofran Inj) (10/21/16 14:30) Sodium Chloride 0.9% Flush (Ns Flush) (10/21/16 14:30) Sodium Chlor 0.9% 1000 Ml Inj (Ns 1000 M (10/21/16 14:19) Orthostatic Vital Signs (10/21/16 14:19) Electrocardiogram (10/21/16 14:33) Sodium Chlor 0.9% 1000 Ml Inj (Ns 1000 M (10/21/16 15:45) Labs Laboratory Tests Test 10/21/16 14:30 White Blood Count 5.9 TH/MM3 Red Blood Count 3.76 MIL/MM3 Hemoglobin 10.8 GM/DL Hematocrit 32.3 % Mean Corpuscular Volume 85.8 FL Mean Corpuscular Hemoglobin 28.8 PG Mean Corpuscular Hemoglobin 33.5 % Concent Red Cell Distribution Width 17.4 % Platelet Count 234 TH/MM3 Mean Platelet Volume 8.5 FL Neutrophils (%) (Auto) 69.8 % Lymphocytes (%) (Auto) 19.2 % Monocytes (%) (Auto) 7.2 % Eosinophils (%) (Auto) 2.9 % Basophils (%) (Auto) 0.9 % Neutrophils # (Auto) 4.1 TH/MM3 Lymphocytes # (Auto) 1.1 TH/MM3 Monocytes # (Auto) 0.4 TH/MM3 Eosinophils # (Auto) 0.2 TH/MM3 Basophils # (Auto) 0.1 TH/MM3 CBC Comment DIFF FINAL Differential Comment Prothrombin Time 10.2 SEC Prothromb Time International 0.9 RATIO Ratio Activated Partial 22.3 SEC Thromboplast Time Sodium Level 131 MEQ/L Potassium Level 5.1 MEQ/L Chloride Level 99 MEQ/L Carbon Dioxide Level 25.0 MEQ/L Anion Gap 7 MEQ/L Blood Urea Nitrogen 22 MG/DL Creatinine 1.33 MG/DL Estimat Glomerular Filtration 39 ML/MIN Rate Random Glucose 107 MG/DL Calcium Level 8.7 MG/DL Magnesium Level 2.1 MG/DL Total Bilirubin 0.4 MG/DL Aspartate Amino Transf 22 U/L (AST/SGOT) Alanine Aminotransferase 16 U/L (ALT/SGPT) Alkaline Phosphatase 114 U/L Total Protein 6.8 GM/DL Albumin 2.9 GM/DL [facility] Medical Decision Making Medical Screen Exam Complete: Yes Emergency Medical Condition: Yes Medical Record Reviewed: Yes Interpretation(s) EKG reveals normal sinus rhythm with a rate of 73. Q wave noted in lead V1, V2 , V3. Laboratory Tests Test 10/21/16 14:30 White Blood Count 5.9 TH/MM3 Red Blood Count 3.76 MIL/MM3 Hemoglobin 10.8 GM/DL Hematocrit 32.3 % Mean Corpuscular Volume 85.8 FL Mean Corpuscular Hemoglobin 28.8 PG Mean Corpuscular Hemoglobin 33.5 % Concent Red Cell Distribution Width 17.4 % Platelet Count 234 TH/MM3 Mean Platelet Volume 8.5 FL Neutrophils (%) (Auto) 69.8 % Lymphocytes (%) (Auto) 19.2 % Monocytes (%) (Auto) 7.2 % Eosinophils (%) (Auto) 2.9 % Basophils (%) (Auto) 0.9 % Neutrophils # (Auto) 4.1 TH/MM3 Lymphocytes # (Auto) 1.1 TH/MM3 Monocytes # (Auto) 0.4 TH/MM3 Eosinophils # (Auto) 0.2 TH/MM3 Basophils # (Auto) 0.1 TH/MM3 CBC Comment DIFF FINAL Differential Comment Prothrombin Time 10.2 SEC Prothromb Time International 0.9 RATIO Ratio Activated Partial 22.3 SEC Thromboplast Time Sodium Level 131 MEQ/L Potassium Level 5.1 MEQ/L Chloride Level 99 MEQ/L Carbon Dioxide Level 25.0 MEQ/L Anion Gap 7 MEQ/L Blood Urea Nitrogen 22 MG/DL Creatinine 1.33 MG/DL Estimat Glomerular Filtration 39 ML/MIN Rate Random Glucose 107 MG/DL Calcium Level 8.7 MG/DL Magnesium Level 2.1 MG/DL Total Bilirubin 0.4 MG/DL Aspartate Amino Transf 22 U/L (AST/SGOT) Alanine Aminotransferase 16 U/L (ALT/SGPT) Alkaline Phosphatase 114 U/L Total Protein 6.8 GM/DL Albumin 2.9 GM/DL Differential Diagnosis Differential diagnosis includes orthostatic hypotension, dehydration, neurogenic syncope, vasovagal syncope, medication side effect, arrhythmia. Narrative Course IV was established, labs are drawn and sent, and the patient was placed on cardiac telemetry monitoring and continuous pulse oximetry monitoring. EKG was ordered and interpreted. CT the brain was ordered as patient is on Eliquis and is feeling weak with presyncopal symptoms to rule out subdural hemorrhage/ intracranial hemorrhage, however, patient declined CT, states she has an outpatient MRI ordered for Thursday. Therefore, CT of the brain was canceled. The patient's creatinine is mildly elevated at 1.33. The patient's coiler was paged at 3:35 PM. The patient is reevaluated, her symptoms had improved, she was administered a second liter of IV fluids. I discussed the patient with her coiler who recommends stopping the lisinopril and hydrochlorothiazide and evaluation in the cardiology office next week for reevaluation of her blood pressure. The patient agrees and understands. The patient will be discharged home. Diagnosis Primary Impression: Orthostatic hypotension Additional Instructions: Stop your hydrochlorothiazide and lisinopril. Follow-up with her coiler next week for reevaluation of blood pressure. MRI later this week as previously scheduled. Return if symptoms worsen or progress. Med/Other Pt SpecificInfo: Med Stopped (stop your lisinopril and hydrochlorothiazide.) Condition: Stable Andriy Eugene MD Oct 21, 2016 14:43
[2016-10-21 15:01] LABS: AUTOMATED NEUTROPHIL # 4.1 TH/MM3 (1.8-7.7); BASOPHIL # 0.1 TH/MM3 (0-0.2); BASOPHIL % 0.9 % (0.0-2.0); EOSINOPHIL # 0.2 TH/MM3 (0-0.4); EOSINOPHIL % 2.9 % (0.0-4.0); HEMATOCRIT 32.3 % (35.0-46.0); HEMO FLAGS DIFF FINAL; LYMPH % 19.2 % (9.0-44.0); LYMPHOCYTE # 1.1 TH/MM3 (1.0-4.8); MEAN CELL VOLUME 85.8 FL (80.0-100.0); MEAN CORPUSCULAR HEMOGLOBIN 28.8 PG (27.0-34.0); MEAN CORPUSCULAR HGB CONC 33.5 % (32.0-36.0); MONO % 7.2 % (0.0-8.0); NEUT % 69.8 % (16.0-70.0); PLATELET COUNT 234 TH/MM3 (150-450); RED BLOOD COUNT 3.76 MIL/MM3 (4.00-5.30); RED CELL DISTRIBUTION WIDTH 17.4 % (11.6-17.2); WHITE BLOOD COUNT 5.9 TH/MM3 (4.0-11.0)
[2016-10-21 15:20] LABS: APTT (PATIENT) 22.3 SEC (24.3-30.1); INTERNATIONAL NORMALIZED RATIO 0.9 RATIO; PROTHROMBIN TIME - PATIENT 10.2 SEC (9.8-11.6)
[2016-10-21 15:25] LABS: ALKALINE PHOSPHATASE 114 U/L (45-117); TOTAL BILIRUBIN ADULT 0.4 MG/DL (0.2-1.0)
[2016-10-21 15:26] LABS: ALT (GPT) 16 U/L (10-53); ANION GAP 7 MEQ/L (5-15); AST (GOT) 22 U/L (15-37); BLOOD UREA NITROGEN 22 MG/DL (7-18); CHLORIDE 99 MEQ/L (98-107); GLOMERULAR FILTRATION RATE 39 ML/MIN (>89); MAGNESIUM 2.1 MG/DL (1.5-2.5); POTASSIUM 5.1 MEQ/L (3.5-5.1); SODIUM (NA) 131 MEQ/L (136-145)
[2016-10-21 17:39] VITALS: BP 128/76
--- NOTE | 2016-10-22 11:05 | EKG ---
Date Performed: 10/21/2016 Time Performed: 14:36:44 PTAGE: 76 years EKG: Sinus rhythm ANTEROSEPTAL MYOCARDIAL INFARCTION ABNORMAL ECG PREVIOUS TRACING : 08/13/2016 15.58 DOCTOR: Neftaly Nguyen Interpretating Date/Time 10/22/2016 11:03:28
== END 2016-10-21 17:41 | disposition home or self-care (01) ==
LOC: NEPA 14:09
DX: I95.1 Orthostatic hypotension (principal); I48.91 Unspecified atrial fibrillation
CPT/HCPCS: 80053; 83735; 85025; 85610; 85730; 93005; 99284; J7030

== ENCOUNTER → 2017-03-05 | Outpatient (CLI) | payer MEDICARE, OTHER ==
[~2017-03-05] MED LIST changes: +AMLO5 PO; +DEXI60CA2 PO; +FEMH0.5T PO; +FURO1TAB62 PO; +VAGI10TA VAGINAL; +VESI5TAB PO
[2017-03-05 10:36] LABS: BLOOD, URINE NEG (NEG); COMMENT (UR) CULT NOT INDICATED; CULTURE IF INDICATED CULT NOT INDICATED; GLUCOSE,URINE NEG (NEG); KETONE, URINE NEG (NEG); NITRITE,URINE NEG (NEG); SQUAMOUS EPITHELIAL CELL URINE 1 /hpf (0-5); URINE COLOR YELLOW (YELLW/STRAW)
[2017-03-05 10:57] LABS: AUTOMATED NEUTROPHIL # 3.5 TH/MM3 (1.8-7.7); BASOPHIL # 0.1 TH/MM3 (0-0.2); BASOPHIL % 1.1 % (0.0-2.0); EOSINOPHIL # 0.3 TH/MM3 (0-0.4); EOSINOPHIL % 4.7 % (0.0-4.0); HEMATOCRIT 30.9 % (35.0-46.0); LYMPH % 21.4 % (9.0-44.0); LYMPHOCYTE # 1.4 TH/MM3 (1.0-4.8); MEAN CORPUSCULAR HEMOGLOBIN 31.5 PG (27.0-34.0); MEAN CORPUSCULAR HGB CONC 34.2 % (32.0-36.0); MONO % 18.7 % (0.0-8.0); NEUT % 54.1 % (16.0-70.0); PLATELET COUNT 225 TH/MM3 (150-450); RED BLOOD COUNT 3.36 MIL/MM3 (4.00-5.30); RED CELL DISTRIBUTION WIDTH 14.7 % (11.6-17.2); WHITE BLOOD COUNT 6.4 TH/MM3 (4.0-11.0)
[2017-03-05 11:05] LABS: ANION GAP 5 MEQ/L (5-15); AST (GOT) 21 U/L (15-37); BICARBONATE 26.6 MEQ/L (21.0-32.0); BLOOD UREA NITROGEN 18 MG/DL (7-18); CHLORIDE 105 MEQ/L (98-107); GLOMERULAR FILTRATION RATE 51 ML/MIN (>89); GLUCOSE,FASTING 83 MG/DL (74-99); POTASSIUM 4.4 MEQ/L (3.5-5.1); SODIUM (NA) 137 MEQ/L (136-145)
[2017-03-05 11:16] LABS: ALKALINE PHOSPHATASE 101 U/L (45-117); ALT (GPT) 16 U/L (10-53); FREE T3 2.04 PG/ML (2.18-3.98); FREE T4 1.45 NG/DL (0.76-1.46); TOTAL BILIRUBIN ADULT 0.6 MG/DL (0.2-1.0)
[2017-03-05 11:44] LABS: HEMO FLAGS AUTO DIFF
[2017-03-05 11:45] LABS: PLATELET ESTIMATE SMEAR NORMAL (NORMAL)
[2017-03-05 11:46] LABS: PLATELET MORPHOLOGY ENLARGED (NORMAL); SCAN/DIFF AUTO DIFF CONFIRMED
== END ==
LOC: CLAB 09:48
PROVIDERS: ATTEND Internal Medicine Interventional Cardiology
DX: I48.0 Paroxysmal atrial fibrillation (principal); I10 Essential (primary) hypertension; E03.9 Hypothyroidism, unspecified; R60.0 Localized edema; R55 Syncope and collapse
CPT/HCPCS: 36415; 80053; 81001; 84439; 84443; 84481; 85025

== ENCOUNTER 2017-03-10 17:39 | Observation (INO) | payer MEDICARE, OTHER ==
[2017-03-10] VITALS (11 sets, daily range): BP systolic 160–235; BP diastolic 70–109; PULSE 76–82; RESP 15–20; TEMP 98.2; O2SAT 98–100
[~2017-03-10] VITALS: Ht 160 cm; Wt 58.0 kg
[~2017-03-10 17:39] MED LIST changes: -AMLO5 PO; -DEXI60CA2 PO; -FEMH0.5T PO; -FURO1TAB62 PO; -VAGI10TA VAGINAL; -VESI5TAB PO
--- NOTE | 2017-03-10 17:58 | PD ---
Physical Exam Time Seen by Provider: 17:58 Narrative 76 y/o female here for evaluation of htn. Vital signs reviewed. Seen at triage desk. Awaiting bed placement. Data Data Last Documented VS Vital Signs Date Time Temp Pulse Resp B/P Pulse Ox O2 Delivery O2 Flow Rate FiO2 03/10/17 17:43 98.2 81 15 235/109 99 MDM Medical Record Reviewed: No Supervised Visit with WARD: Matthew Doyle Mar 10, 2017 17:58
--- NOTE | 2017-03-10 21:27 | PD ---
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) Endocrine: No Gastrointestinal Disorders: Yes GERD: Yes Genitourinary: No Hepatitis: No Hiatal Hernia: No Hypertension: Yes Immune Disorder: No Kidney Stones: No Musculoskeletal: Yes (MULTIPLE SCLEROSIS) Neurologic: Yes (HX OF MS) Psychiatric: No Reproductive: No Respiratory: No Immunizations Current: Yes Migraines: No Renal Failure: No Seizures: No Thyroid Disease: No Ulcer: Yes (BLEEDING ULCERS IN HX) Menopausal: Yes Dilation and Curettage (D&C): Yes Past Surgical History Abdominal Surgery: Yes (GALLBLADDER REMOVAL) AICD: No Cardiac Surgery: No Cholecystectomy: Yes Coronary Artery Bypass Graft: No Ear Surgery: No Endocrine Surgery: No Eye Surgery: Yes (CATARACT REMOVAL) Genitourinary Surgery: No Gynecologic Surgery: Yes Hysterectomy: No Joint Replacement: No Oral Surgery: No Pacemaker: No Thoracic Surgery: No Other Surgery: Yes Social History Alcohol Use: No Tobacco Use: No Substance Use: No Allergies-Medications (Allergen,Severity, Reaction): Coded Allergies: Enzymes Oral (Verified Allergy, Mild, RESP DISTRESS, 03/10/17) Reported Meds & Prescriptions Reported Meds & Active Scripts Active Hydrochlorothiazide 25 Mg Tab 25 Mg PO DAILY Lisinopril 5 Mg Tab 5 Mg PO Q12HR Reported Ondansetron (Ondansetron HCl) 4 Mg Tab 4 Mg PO Q8HR PRN Gabapentin 300 Mg Cap 300 Mg PO TID PRN Levothyroxine (Levothyroxine Sodium) 100 Mcg Tab 100 Mcg PO DAILY Dexilant (Dexlansoprazole) 60 Mg Cap 60 Mg PO DAILY Aubagio (Teriflunomide) 14 Mg Tab 14 Mg PO DAILY Pacerone (Amiodarone HCl) 200 Mg Tab 100 Mg PO DAILY Metoprolol Succinate ER 24 HR (Metoprolol Succinate) 100 Mg Tab 100 Mg PO DAILY Myrbetriq (Mirabegron) 50 Mg Tab 50 Mg PO DAILY Eliquis (Apixaban) 2.5 Mg Tab 2.5 Mg PO BID Modafinil 200 Mg Tab 200 Mg PO BID Data Data Last Documented VS Vital Signs Date Time Temp Pulse Resp B/P Pulse Ox O2 Delivery O2 Flow Rate FiO2 03/10/17 19:35 210/90 03/10/17 17:43 98.2 81 15 99 Orders Electrocardiogram (03/10/17 ) [facility] Medical Decision Making Medical Screen Exam Complete: Yes Emergency Medical Condition: Yes Medical Record Reviewed: Yes Meghan Serrano MD Mar 10, 2017 21:26 Lungs: Clear to auscultation bilaterally. No wheezes, rhonchi, or rales. Abdomen: Soft, without tenderness to palpation in all 4 quadrants of the abdomen. No guarding, rebound, or rigidity. Negative Brighton sign. Extremities: No clubbing, cyanosis, or edema. 2+ pulses in all 4 extremities. Back: No spinous process tenderness to palpation. No costovertebral angle tenderness to palpation. Neurologic Exam: Cranial nerves 2-12 were intact on exam. Strength is 5/5 in all 4 extremities. No sensory deficits noted. No dysdiadochokinesis. Good finger to nose and Heel to sahu bilaterally. Skin Exam: No rash noted. Intact skin that is warm and dry. Data Data Last Documented VS Vital Signs Date Time Temp Pulse Resp B/P Pulse Ox O2 Delivery O2 Flow Rate FiO2 03/10/17 19:35 210/90 03/10/17 17:43 98.2 81 15 99 Orders Electrocardiogram (03/10/17 ) [facility] Medical Decision Making Medical Screen Exam Complete: Yes Emergency Medical Condition: Yes Medical Record Reviewed: Yes Narrative Course During the course of the patients emergency department visit, the patients history, examination, and differential diagnosis were reviewed with the patient. The patient had [-] IV access obtained and blood work sent for analysis. The patient was initially provided [-]. The patients laboratory studies were reviewed and remarkable for [-]. Radiology studies were reviewed and remarkable for [-] Meghan Serrano MD Mar 10, 2017 21:26
[2017-03-10] MEDS ORDERED: SODIUM CHLORIDE 0.9% FLUSH 10 ML FLUSH IVF PRN (21:30)
--- NOTE | 2017-03-10 21:31 | PD ---
Data Data Last Documented VS Vital Signs Date Time Temp Pulse Resp B/P Pulse Ox O2 Delivery O2 Flow Rate FiO2 03/10/17 23:00 76 20 175/80 98 Room Air 03/10/17 17:43 98.2 Orders Electrocardiogram (03/10/17 ) Electrocardiogram (03/10/17 21:30) Basic Metabolic Panel (Bmp) (03/10/17 21:30) Ckmb (Isoenzyme) Profile (03/10/17 21:30) Complete Blood Count With Diff (03/10/17 21:30) Magnesium (Mg) (03/10/17 21:30) Prothrombin Time / Inr (Pt) (03/10/17 21:30) Act Partial Throm Time (Ptt) (03/10/17 21:30) Troponin I (03/10/17 21:30) Chest, Single Ap (03/10/17 21:30) Ecg Monitoring (03/10/17 21:30) Bilateral Bp Monitoring (03/10/17 21:30) Iv Access Insert/Monitor (03/10/17 21:30) Oximetry (03/10/17 21:30) Oxygen Administration (03/10/17 21:30) Sodium Chloride 0.9% Flush (Ns Flush) (03/10/17 21:30) Labetalol Inj (Trandate Inj) (03/10/17 21:45) Aspirin Chew (Aspirin Chew) (03/10/17 21:45) Admit Order (Ed Use Only) (03/10/17 22:58) Activity Bed Rest With Brp (03/10/17 22:58) Vital Signs (Adult) Q4H (03/10/17 22:58) Cardiac Rhythm .As Directed (03/10/17 22:58) Notify Dr: Other .PRN (03/10/17 22:58) Notify Dr. Parameters (03/10/17 22:58) Resp Oxygen Nasal Cannula (03/10/17 ) Ckmb (Isoenzyme) Profile (03/11/17 00:45) Ckmb (Isoenzyme) Profile (03/11/17 03:45) Troponin I (03/11/17 00:45) Troponin I (03/11/17 03:45) Electrocardiogram (03/11/17 00:45) Electrocardiogram (03/11/17 03:45) ^ Obtain (03/10/17 22:58) Sodium Chloride 0.9% Flush (Ns Flush) (03/10/17 23:00) Sodium Chloride 0.9% Flush (Ns Flush) (03/11/17 09:00) Pre K Teacher / Telemetry RUPERT.Q8H (03/10/17 22:58) Labs Laboratory Tests Test 03/10/17 21:45 White Blood Count 4.3 TH/MM3 Red Blood Count 3.43 MIL/MM3 Hemoglobin 10.3 GM/DL Hematocrit 31.5 % Mean Corpuscular Volume 91.9 FL Mean Corpuscular Hemoglobin 30.1 PG Mean Corpuscular Hemoglobin 32.8 % Concent Red Cell Distribution Width 14.6 % Platelet Count 190 TH/MM3 Mean Platelet Volume 8.0 FL Neutrophils (%) (Auto) 40.6 % Lymphocytes (%) (Auto) 36.8 % Monocytes (%) (Auto) 16.9 % Eosinophils (%) (Auto) 5.1 % Basophils (%) (Auto) 0.6 % Neutrophils # (Auto) 1.7 TH/MM3 Lymphocytes # (Auto) 1.6 TH/MM3 Monocytes # (Auto) 0.7 TH/MM3 Eosinophils # (Auto) 0.2 TH/MM3 Basophils # (Auto) 0.0 TH/MM3 CBC Comment DIFF FINAL Differential Comment Prothrombin Time 9.8 SEC Prothromb Time International 0.9 RATIO Ratio Activated Partial 23.1 SEC Thromboplast Time Sodium Level 136 MEQ/L Potassium Level 4.1 MEQ/L Chloride Level 103 MEQ/L Carbon Dioxide Level 28.2 MEQ/L Anion Gap 5 MEQ/L Blood Urea Nitrogen 18 MG/DL Creatinine 1.08 MG/DL Estimat Glomerular Filtration 49 ML/MIN Rate Random Glucose 110 MG/DL Calcium Level 8.3 MG/DL Magnesium Level 2.2 MG/DL Total Creatine Kinase 74 U/L Troponin I LESS THAN 0.02 NG/ML [facility] Medical Record Reviewed: Yes Supervised Visit with WARD: Yes Interpretation(s) Last Impressions Chest X-Ray 03/10/172129 Signed Impressions: Service Date/Time: Friday, March 10, 2017 21:30 - CONCLUSION: 1. Bibasilar atelectasis. Heart size mildly enlarged. Yaniv Courtney MD Narrative Course I, Dr. Serrano, have reviewed the advance practice practitioner's documentation and am in agreement, met with the patient face to face, made the diagnosis, and the medical decision making was done by me. The patient was initially seen by Jaylan, the physician assistant pastry chef. Please see his complete history and physical. *My assessment and Findings: The patient is a 76-year-old female who presents to [facility] emergency Department with a history of reportedly not feeling well since being started on Lasix 1-2 weeks ago, therefore she discontinued it. The patient reports having a history of high blood pressure. She reports that over the last couple of days she's had intermittent left-sided jaw pain which she thought was initially related to the tooth, however that she realized there was no problem with her teeth. The patient denies having any chest pressure or shortness of breath currently. She denies having any jaw pain currently. She was seen by her oncologist earlier today and was sent to the emergency department for elevated blood pressure. During the course of the patients emergency department visit, the patients history, examination, and differential diagnosis were reviewed with the patient. The patient had IV access obtained and blood work sent for analysis. Patient was placed on a ekg monitor tech with oximetry and blood pressure monitoring. An EKG was done on arrival. The patient's EKG reveals a sinus rhythm of 78, no acute ST segment elevation or depression, T waves are inverted in V1. QRS duration 75 ms, QTC 400 ms. The patient was initially provided aspirin 81 mg by mouth 1. The patients laboratory studies were reviewed and remarkable for a white count of 4.3, hemoglobin 10.3, platelets 190 was 16.9 monos, basic metabolic profile is remarkable for creatinine 1.08, glucose 110, calcium 8.3, CPK 74, troponin I less than 0.02, PT 9.8, PTT 23.1 Radiology studies were reviewed and remarkable for a chest x-ray that reveals bibasilar atelectasis, heart size mildly enlarged. No other acute abnormality. The patients results were discussed with the patient, including the plan of care. I explained that further testing and/ or monitoring is indicated based on the patients history, examination, and/ or laboratory findings. Therefore, I recommended admission for additional evaluation. The patient expressed understanding and was agreeable with this plan. The patient was admitted to the hospital in stable condition and sent to a bed under the care of the chest pain center. Diagnosis Primary Impression: Atypical chest pain Additional Impression: Hypertension Qualified Code: I10 - Hypertension, unspecified type Meghan Serrano MD Mar 10, 2017 21:31
--- NOTE | 2017-03-10 21:40 | PD ---
HPI Chief Complaint: Hypertension Time Seen by Provider: 21:37 Travel History International Travel<30 days: No Contact w/Intl Traveler<30days: No Traveled to known affect area: No History of Present Illness HPI Patient comes in for evaluation at the advice of her oncologist Dr. Peraza for elevated blood pressure noted and his office today. Patient states she believes it was approximately 230/120, but is uncertain. Patient states that her primary care doctor approximately a month ago switched her blood pressure medicine and restarted on Lasix. Patient states that she quit taking her Lasix on her own in about 2 weeks ago after feeling worse while on the Lasix. Patient since stopping the Lasix states she has been feeling better, but over the past 3 days had intermittent left jaw pain and thought she might be getting a toothache but has not got one yet. Patient denies any symptoms currently. Denies any chest pain, shortness of breath, nausea, vomiting, abdominal pain, back pain, new numbness or tingling anywhere, headache, or dizziness. Patient states she does not have stressed several years, but she did not do well on it per patient and has not had a cardiac catheter. 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) Endocrine: No Gastrointestinal Disorders: Yes GERD: Yes Genitourinary: No Hepatitis: No Hiatal Hernia: No Hypertension: Yes Immune Disorder: No Kidney Stones: No Musculoskeletal: Yes (MULTIPLE SCLEROSIS) Neurologic: Yes (HX OF MS) Psychiatric: No Reproductive: No Respiratory: No Immunizations Current: Yes Migraines: No Renal Failure: No Seizures: No Thyroid Disease: No Ulcer: Yes (BLEEDING ULCERS IN HX) Influenza Vaccination: Yes Menopausal: Yes Dilation and Curettage (D&C): Yes Past Surgical History Abdominal Surgery: Yes (GALLBLADDER REMOVAL) AICD: No Cardiac Surgery: No Cholecystectomy: Yes Coronary Artery Bypass Graft: No Ear Surgery: No Endocrine Surgery: No Eye Surgery: Yes (CATARACT REMOVAL) Genitourinary Surgery: No Gynecologic Surgery: Yes Hysterectomy: No Joint Replacement: No Oral Surgery: No Pacemaker: No Thoracic Surgery: No Other Surgery: Yes Social History Alcohol Use: No Tobacco Use: No Substance Use: No Allergies-Medications (Allergen,Severity, Reaction): Coded Allergies: Enzymes Oral (Verified Allergy, Mild, RESP DISTRESS, 03/10/17) Reported Meds & Prescriptions Reported Meds & Active Scripts Active Reported Dexilant (Dexlansoprazole) 60 Mg Cap.dr.bp 60 Cap PO DAILY Vesicare (Solifenacin) 5 Mg Tab 5 Mg PO HS Vagifem Vaginal (Estradiol Vaginal) 10 Mcg Vagtab 10 Mcg VAGINAL 3XWEEK Femhrt Low Dose (Norethindrone-Ethinyl Estradiol) 0.5-2.5 Mg-Mcg Tab 1 Tab PO 3XWEEK Gabapentin 300 Mg Cap 300 Mg PO HS Lasix (Furosemide) 20 Mg Tab 20 Mg PO DAILY Levothyroxine (Levothyroxine Sodium) 100 Mcg Tab 100 Mcg PO DAILY Aubagio (Teriflunomide) 14 Mg Tab 14 Mg PO DAILY Metoprolol Succinate ER 24 HR (Metoprolol Succinate) 100 Mg Tab 100 Mg PO HS Myrbetriq (Mirabegron) 50 Mg Tab 50 Mg PO DAILY Eliquis (Apixaban) 2.5 Mg Tab 2.5 Mg PO BID Modafinil 200 Mg Tab 200 Mg PO BID Review of Systems Except as stated in HPI: all other systems reviewed are Neg Physical Exam Narrative GENERAL: Well-developed, well nourished, in no acute distress, and non-ill appearing. SKIN: Focused skin assessment warm and dry. HEAD: Atraumatic. Normocephalic. EYES: Pupils equal and round. EOMI. No scleral icterus. No injection or drainage. ENT: No nasal bleeding or discharge. Mucous membranes pink and moist. NECK: Trachea midline. No JVD. Supple. No nuclear rigidity. CARDIOVASCULAR: Regular rate and rhythm. No murmur appreciated. RESPIRATORY: No accessory muscle use. No respiratory distress. Clear to auscultation. Breath sounds equal bilaterally. GASTROINTESTINAL: Abdomen soft, non-tender, nondistended, and no guarding. Hepatic and splenic margins not palpable. No pulsatile mass. MUSCULOSKELETAL: No obvious deformities. No clubbing. No cyanosis. No edema. Full range of motion. NEUROLOGICAL: Awake and alert. No obvious cranial nerve deficits. Motor grossly within normal limits. Normal speech. PSYCHIATRIC: Appropriate mood and affect; insight and judgment normal. Data Data Last Documented VS Vital Signs Date Time Temp Pulse Resp B/P Pulse Ox O2 Delivery O2 Flow Rate FiO2 03/10/17 23:00 76 20 175/80 98 Room Air 03/10/17 17:43 98.2 Orders Electrocardiogram (03/10/17 ) Electrocardiogram (03/10/17 21:30) Basic Metabolic Panel (Bmp) (03/10/17 21:30) Ckmb (Isoenzyme) Profile (03/10/17 21:30) Complete Blood Count With Diff (03/10/17 21:30) Magnesium (Mg) (03/10/17 21:30) Prothrombin Time / Inr (Pt) (03/10/17 21:30) Act Partial Throm Time (Ptt) (03/10/17 21:30) Troponin I (03/10/17 21:30) Chest, Single Ap (03/10/17 21:30) Ecg Monitoring (03/10/17 21:30) Bilateral Bp Monitoring (03/10/17 21:30) Iv Access Insert/Monitor (03/10/17 21:30) Oximetry (03/10/17 21:30) Oxygen Administration (03/10/17 21:30) Sodium Chloride 0.9% Flush (Ns Flush) (03/10/17 21:30) Labetalol Inj (Trandate Inj) (03/10/17 21:45) Aspirin Chew (Aspirin Chew) (03/10/17 21:45) Admit Order (Ed Use Only) (03/10/17 22:58) Activity Bed Rest With Brp (03/10/17 22:58) Vital Signs (Adult) Q4H (03/10/17 22:58) Cardiac Rhythm .As Directed (03/10/17 22:58) Notify Dr: Other .PRN (03/10/17 22:58) Notify . Parameters (03/10/17 22:58) Resp Oxygen Nasal Cannula (03/10/17 ) Ckmb (Isoenzyme) Profile (03/11/17 00:45) Ckmb (Isoenzyme) Profile (03/11/17 03:45) Troponin I (03/11/17 00:45) Troponin I (03/11/17 03:45) Electrocardiogram (03/11/17 00:45) Electrocardiogram (03/11/17 03:45) ^ Obtain (03/10/17 22:58) Sodium Chloride 0.9% Flush (Ns Flush) (03/10/17 23:00) Sodium Chloride 0.9% Flush (Ns Flush) (03/11/17 09:00) Heavy Equipment Rental Associate / Telemetry RUPERT.[email or web address] (03/10/17 22:58) Labs Laboratory Tests Test 03/10/17 21:45 White Blood Count 4.3 TH/MM3 Red Blood Count 3.43 MIL/MM3 Hemoglobin 10.3 GM/DL Hematocrit 31.5 % Mean Corpuscular Volume 91.9 FL Mean Corpuscular Hemoglobin 30.1 PG Mean Corpuscular Hemoglobin 32.8 % Concent Red Cell Distribution Width 14.6 % Platelet Count 190 TH/MM3 Mean Platelet Volume 8.0 FL Neutrophils (%) (Auto) 40.6 % Lymphocytes (%) (Auto) 36.8 % Monocytes (%) (Auto) 16.9 % Eosinophils (%) (Auto) 5.1 % Basophils (%) (Auto) 0.6 % Neutrophils # (Auto) 1.7 TH/MM3 Lymphocytes # (Auto) 1.6 TH/MM3 Monocytes # (Auto) 0.7 TH/MM3 Eosinophils # (Auto) 0.2 TH/MM3 Basophils # (Auto) 0.0 TH/MM3 CBC Comment DIFF FINAL Differential Comment Prothrombin Time 9.8 SEC Prothromb Time International 0.9 RATIO Ratio Activated Partial 23.1 SEC Thromboplast Time Sodium Level 136 MEQ/L Potassium Level 4.1 MEQ/L Chloride Level 103 MEQ/L Carbon Dioxide Level 28.2 MEQ/L Anion Gap 5 MEQ/L Blood Urea Nitrogen 18 MG/DL Creatinine 1.08 MG/DL Estimat Glomerular Filtration 49 ML/MIN Rate Random Glucose 110 MG/DL Calcium Level 8.3 MG/DL Magnesium Level 2.2 MG/DL Total Creatine Kinase 74 U/L Troponin I LESS THAN 0.02 NG/ML MDM Medical Decision Making Medical Screen Exam Complete: Yes Emergency Medical Condition: Yes Interpretation(s) EKG reviewed by Dr. Serrano shows sinus rhythm ventricular rate is 79. No STEMI. Chest x-ray read by the radiologist shows: Bibasilar atelectasis. Heart size mildly enlarged. Differential Diagnosis Hypertension urgency, hypertensive crisis, accelerated hypertension, atypical chest pain, acute coronary syndrome, other Narrative Course Patient seen and examined. IV was established patient's tube builder. Initial laboratory radiological studies were ordered. Patient is given a dose of baby aspirin and IV labetalol. Laboratory and radiologic studies were reviewed. Discussed all findings with Dr. Serrano who recommends offering the patient outpatient follow-up versus admission to the chest pain center. Discussed all findings with patient and her . Patient is given the option for outpatient follow-up with her organic lab worker versus being admitted to the chest pain center for further evaluation. Patient is wanting to stay at this time be admitted to the chest pain center for further treatment and evaluation. Diagnosis Primary Impression: Atypical chest pain Admitting Information Admitting Physician Requests: Observation Scripts Amlodipine (Norvasc)5 Mg Tab2.5 Mg PO DAILY #30 TAB Prov:Mike Randall 03/11/17 Condition: Stable Shady Eng Mar 10, 2017 21:40
[2017-03-10] MEDS ORDERED: LABETALOL HCL 100 MG/20 ML VIAL IV PUSH ONE (21:45)
[2017-03-10] MEDS ORDERED: ASPIRIN 81 MG CHEW TAB PO ONE (21:45)
--- NOTE | 2017-03-10 22:03 | RADRPT ---
EXAM DATE/TIME: 03/10/2017 21:30 [facility] COMPARISON: No previous studies available for comparison. INDICATIONS : Chest pain. MEDICAL HISTORY : None. SURGICAL HISTORY : None. ENCOUNTER: Initial ACUITY: 1 day PAIN SCORE: 0/10 LOCATION: Bilateral chest FINDINGS: A single view of the chest demonstrates the lungs to be symmetrically aerated without evidence of mas s, infiltrate or effusion. Bibasilar atelectasis. Heart size mildly enlarged. CONCLUSION: 1. Bibasilar atelectasis. Heart size mildly enlarged. Yaniv Courtney MD on March 10, 2017 at 22:01 Board Certified Radiologist. This report was verified electronically.
[2017-03-10 22:19] LABS: AUTOMATED NEUTROPHIL # 1.7 TH/MM3 (1.8-7.7); BASOPHIL % 0.6 % (0.0-2.0); EOSINOPHIL # 0.2 TH/MM3 (0-0.4); EOSINOPHIL % 5.1 % (0.0-4.0); HEMATOCRIT 31.5 % (35.0-46.0); HEMO FLAGS DIFF FINAL; LYMPH % 36.8 % (9.0-44.0); LYMPHOCYTE # 1.6 TH/MM3 (1.0-4.8); MEAN CELL VOLUME 91.9 FL (80.0-100.0); MEAN CORPUSCULAR HEMOGLOBIN 30.1 PG (27.0-34.0); MEAN CORPUSCULAR HGB CONC 32.8 % (32.0-36.0); MONO % 16.9 % (0.0-8.0); NEUT % 40.6 % (16.0-70.0); PLATELET COUNT 190 TH/MM3 (150-450); RED BLOOD COUNT 3.43 MIL/MM3 (4.00-5.30); RED CELL DISTRIBUTION WIDTH 14.6 % (11.6-17.2); WHITE BLOOD COUNT 4.3 TH/MM3 (4.0-11.0)
[2017-03-10 22:31] LABS: ANION GAP 5 MEQ/L (5-15); APTT (PATIENT) 23.1 SEC (24.3-30.1); BICARBONATE 28.2 MEQ/L (21.0-32.0); BLOOD UREA NITROGEN 18 MG/DL (7-18); CHLORIDE 103 MEQ/L (98-107); GLOMERULAR FILTRATION RATE 49 ML/MIN (>89); INTERNATIONAL NORMALIZED RATIO 0.9 RATIO; MAGNESIUM 2.2 MG/DL (1.5-2.5); POTASSIUM 4.1 MEQ/L (3.5-5.1); PROTHROMBIN TIME - PATIENT 9.8 SEC (9.8-11.6); SODIUM (NA) 136 MEQ/L (136-145)
[2017-03-10 22:36] LABS: CREATINE KINASE 74 U/L (26-192)
[2017-03-10] MEDS ORDERED: SODIUM CHLORIDE 0.9% FLUSH 10 ML FLUSH IV FLUSH PRN (23:00)
[2017-03-10] MEDS ORDERED: DEXI60CA2 PO (23:42)
[2017-03-10] MEDS ORDERED: GABA300C5 PO (23:42)
[2017-03-10] MEDS ORDERED: VESI5TAB PO (23:42)
[2017-03-10] MEDS ORDERED: FURO1TAB62 PO (23:42)
[2017-03-10] MEDS ORDERED: FEMH0.5T PO (23:42)
[2017-03-10] MEDS ORDERED: VAGI10TA VAGINAL (23:42)
[2017-03-11] VITALS (8 sets, daily range): BP systolic 156–202; BP diastolic 70–94; PULSE 79–87; RESP 16–18; TEMP 97.7–98.8; O2SAT 95–98
[2017-03-11 02:01] LABS: CREATINE KINASE 55 U/L (26-192)
[2017-03-11 04:49] LABS: CREATINE KINASE 56 U/L (26-192)
[2017-03-11] MEDS ORDERED: SODIUM CHLORIDE 0.9% FLUSH 10 ML FLUSH IV FLUSH SCH (09:00)
[2017-03-11] MEDS ORDERED: APIXABAN 2.5 MG TABLET PO SCH (09:00)
--- NOTE | 2017-03-11 09:06 | HHI.HP ---
[facility] Primary Care Physician Serge Mora M.D. Chief Complaint Hypertension History of Present Illness This is a 76-year-old female that states she presents to ED secondary to hypertension. She was at Dr. Peraza's office yesterday for routine follow-up. Her blood pressure was found to have a systolic over 230. She states she was told to come to the ED. States she's had issues with hypertension. She follows Dr. Pratt also. States lisinopril was discontinued several months ago secondary to hypotension she passed out. States she's taken Lasix and Toprol for blood pressure. Denied having chest discomfort. But she states that she has had a right-sided toothache and then she states that now she thinks it is just that her jaw hurts on the right side. Denies history of CAD. Cannot recall last stress test. States she saw Dr. Pratt 2 weeks ago and had an echo and is scheduled follow-up appointment next Thursday. Review of Systems General: Patient denies fevers, chills recent, and recent travel HEENT: Patient denies headache, sore throat, difficulty swallowing. Cardiovascular: Denies chest discomfort as mentioned above. Denies sensation of heart beating rapidly or irregularly. No syncope. Respiratory: Denies shortness of breath or inspirational chest discomfort. Denies coughing wheezing or hemoptysis. GI: Patient denies nausea, vomiting, diarrhea, abdominal pain, bloody stools. Musculoskeletal: Patient denies joint pain or edema. Denies calf pain or edema. Neurovascular: Patient denies numbness, tingling, weakness in extremities. Denies headache. Endocrine: Denies polyuria and polydipsia. Hematologic: Denies easy bruising. Skin: Denies rash or itching. Past Family Social History Allergies: Coded Allergies: Enzymes Oral (Verified Allergy, Mild, RESP DISTRESS, 03/10/17) Past Medical History Multiple sclerosis, paroxysmal atrial fibrillation, hypertension, chronic anemia , hypothyroidism, issue prior GI bleed. Denies diabetes, CAD, and hyperlipidemia. Past Surgical History Cholecystectomy, cataracts. Reported Medications Reported Meds & Active Scripts Active Reported Dexilant (Dexlansoprazole) 60 Mg Jordan.bp 60 Cap PO DAILY Vesicare (Solifenacin) 5 Mg Tab 5 Mg PO HS Vagifem Vaginal (Estradiol Vaginal) 10 Mcg Vagtab 10 Mcg VAGINAL 3XWEEK Femhrt Low Dose (Norethindrone-Ethinyl Estradiol) 0.5-2.5 Mg-Mcg Tab 1 Tab PO 3XWEEK Gabapentin 300 Mg Cap 300 Mg PO HS Lasix (Furosemide) 20 Mg Tab 20 Mg PO DAILY Levothyroxine (Levothyroxine Sodium) 100 Mcg Tab 100 Mcg PO DAILY Aubagio (Teriflunomide) 14 Mg Tab 14 Mg PO DAILY Metoprolol Succinate ER 24 HR (Metoprolol Succinate) 100 Mg Tab 100 Mg PO HS Myrbetriq (Mirabegron) 50 Mg Tab 50 Mg PO DAILY Eliquis (Apixaban) 2.5 Mg Tab 2.5 Mg PO BID Modafinil 200 Mg Tab 200 Mg PO BID Active Ordered Medications Current Medications Medications (Trade) Dose Ordered Sig/Ojse Antonio Route Start Time Stop Time Status Last Admin (NS Flush) 2 ml UNSCH PRN IVF 03/10/17 21:30 03/10/17 22:00 (NS Flush) 2 ml UNSCH PRN IV FLUSH 03/10/17 23:00 (NS Flush) 2 ml BID IV FLUSH 03/11/17 09:00 (Eliquis) 2.5 mg BID PO 03/11/17 09:00 UNV (Neurontin) 300 mg HS PO 03/11/17 21:00 UNV (Synthroid) 100 mcg DAILY PO 03/11/17 09:00 UNV (Provigil) 200 mg BID PO 03/11/17 09:00 UNV Non-Formulary Medication 60 cap DAILY PO 03/11/17 09:00 UNV Non-Formulary Medication 50 mg DAILY PO 03/11/17 09:00 UNV Non-Formulary Medication 14 mg DAILY PO 03/11/17 09:00 UNV Family History Questionable family history of CAD. Social History Patient does not smoke, drink alcohol, or use illicit drugs. Physical Exam Vital Signs Vital Signs Date Time Temp Pulse Resp B/P Pulse Ox O2 Delivery O2 Flow Rate FiO2 03/11/17 07:12 97.7 87 16 202/86 95 03/11/17 06:20 98.8 83 18 176/74 97 03/11/17 02:27 85 03/11/17 01:11 98.1 16 156/71 96 03/11/17 00:30 79 18 166/70 99 03/11/17 00:00 79 18 170/74 98 Room Air 03/10/17 23:00 76 20 175/80 98 Room Air 03/10/17 22:30 77 18 165/72 98 Room Air 03/10/17 22:20 76 16 160/72 98 Room Air 03/10/17 22:15 76 15 161/70 99 Room Air 03/10/17 22:05 76 18 208/101 99 Room Air 03/10/17 22:00 78 17 205/95 100 Room Air 03/10/17 21:52 78 18 204/91 98 Room Air 03/10/17 21:49 99 Room Air 03/10/17 21:45 81 20 224/103 99 Room Air 03/10/17 21:30 82 20 205/95 99 Room Air 03/10/17 19:35 210/90 03/10/17 17:43 98.2 81 15 235/109 99 Physical Exam GENERAL: This is a well-nourished, well-developed patient, in no apparent distress. Patient speaks in clear complete sentences. Patient is pleasant. HEENT: Head is atraumatic and normocephalic. Neck is supple without lymphadenopathy and trachea is midline. No JVD or carotid bruits. CARDIOVASCULAR: Regular rate and rhythm without murmurs, gallops, or rubs. RESPIRATORY: Clear to auscultation. Breath sounds equal bilaterally. No wheezes , rales, or rhonchi. Chest wall is nontender. No use of accessory muscles. GASTROINTESTINAL: Abdomen is nontender, nondistended. Abdomen soft. No obvious pulsatile mass or bruit. No CVA tenderness. Strong femoral pulses bilaterally. Normal bowel sounds in all quadrants. MUSCULOSKELETAL: Patient is moving upper and lower extremities freely. No calf tenderness or edema, no Homans sign. Strong pulses in upper and lower extremities. NEUROLOGICAL: Patient is alert and oriented. Cranial nerves 2-12 are grossly intact. No focal deficits and speech is clear. SKIN: No rash and turgor is normal. Laboratory Laboratory Tests Test 03/10/17 03/11/17 03/11/17 21:45 01:10 03:55 White Blood Count 4.3 Red Blood Count 3.43 Hemoglobin 10.3 Hematocrit 31.5 Mean Corpuscular Volume 91.9 Mean Corpuscular Hemoglobin 30.1 Mean Corpuscular Hemoglobin 32.8 Concent Red Cell Distribution Width 14.6 Platelet Count 190 Mean Platelet Volume 8.0 Neutrophils (%) (Auto) 40.6 Lymphocytes (%) (Auto) 36.8 Monocytes (%) (Auto) 16.9 Eosinophils (%) (Auto) 5.1 Basophils (%) (Auto) 0.6 Neutrophils # (Auto) 1.7 Lymphocytes # (Auto) 1.6 Monocytes # (Auto) 0.7 Eosinophils # (Auto) 0.2 Basophils # (Auto) 0.0 CBC Comment DIFF FINAL Differential Comment Prothrombin Time 9.8 Prothromb Time International 0.9 Ratio Activated Partial 23.1 Thromboplast Time Sodium Level 136 Potassium Level 4.1 Chloride Level 103 Carbon Dioxide Level 28.2 Anion Gap 5 Blood Urea Nitrogen 18 Creatinine 1.08 Estimat Glomerular Filtration 49 Rate Random Glucose 110 Calcium Level 8.3 Magnesium Level 2.2 Total Creatine Kinase 74 55 56 Troponin I LESS THAN 0.02 LESS THAN 0.02 LESS THAN 0.02 Result Diagram: 03/10/17214403/10/172144 Imaging Last 48 hours Impressions Chest X-Ray 03/10/172129 Signed Impressions: Service Date/Time: Friday, March 10, 2017 21:30 - CONCLUSION: 1. Bibasilar atelectasis. Heart size mildly enlarged. Yaniv Courtney MD Course EKGs have been sinus rhythm without significant ST segment depressions or elevations. Assessment and Plan Assessment and Plan * Hypertension: At and states that her blood pressures have been somewhat erratic over the last year. States that at times her blood pressure drops too low. She states she's had syncopal episodes. He states of lisinopril was discontinued secondary to syncopal episode about 6 months ago. She now also voices noncompliance with Lasix. States she stopped taking the Lasix 2 weeks ago secondary to her blood pressure being too low. Asked what her blood pressure was she responds "118/65." She then states that his low for her. She did not discuss this with any of her physicians. We were thinking of adding amlodipine however patient states she was on Norvasc and it made her blood pressure too low. Doesn't know the dose. We are waiting for Dr. Terence rosales for more information. She was seen by Dr. Syed Carvajal of cardiology in the chest pain center. Patient is denying chest discomfort. Likely will have no stress test. Patient to follow-up with her golf ball marker Dr. Pratt. * Multiple sclerosis: Continue her medications. Continue follow-up with her specialists. * Paroxysmal atrial ablation: Continue current medications. * Hypothyroidism: Continue current medication. * Chronic anemia: Continue follow-up with her physician. Patient is stable at this time. She is agreeable to this plan. Mike Randall Mar 11, 2017 09:06
[2017-03-11] MEDS ORDERED: AMLO5 PO (09:59)
[2017-03-11] MEDS ORDERED: cloNIDine HCL 0.1 MG TAB PO PRN (10:00)
[2017-03-11] MEDS ORDERED: amLODIPine BESYLATE 5 MG TAB PO SCH (10:00)
--- NOTE | 2017-03-11 10:00 | HHI.DCPOC ---
Discharge Care Plan Diagnosis: (1) Hypertension Goals to Promote Your Health * To prevent worsening of your condition and complications * To maintain your health at the optimal level Directions to Meet Your Goals Take your medications as prescribed Follow your dietary instruction Follow activity as directed Keep your appointments as scheduled Take your immunizations and boosters as scheduled If your symptoms worsen call your PCP, if no PCP go to Urgent Care Center or Emergency Room Smoking is Dangerous to Your Health. Avoid second hand smoke Call the 24-hour hour crisis hotline for domestic abuse at Mike Randall Mar 11, 2017 10:00
[2017-03-11] MEDS ORDERED: TOLTERODINE TARTRATE 4 MG CAP LA PO SCH (10:15)
[2017-03-11] MEDS ORDERED: PANTOPRAZOLE SOD 40 MG DELAYED RELEASE TAB PO SCH (10:15)
[2017-03-11] MEDS ORDERED: LEVOTHYROXINE SODIUM 100 MCG TAB PO SCH (10:15)
[2017-03-11] MEDS ORDERED: MODAFINIL 200 MG TAB PO SCH (10:30)
[2017-03-11] MEDS ORDERED: AUBAGIO 14 MG PO SCH (10:30)
--- NOTE | 2017-03-11 15:39 | EKG ---
Date Performed: 03/10/2017 Time Performed: 22:04:57 PTAGE: 76 years EKG: Sinus rhythm ABNORMAL ECG PREVIOUS TRACING : 03/10/2017 20.05 Since previous tracing, no significant change noted DOCTOR: Syed Carvajal Interpretating Date/Time 03/11/2017 15:38:16
--- NOTE | 2017-03-11 15:39 | EKG ---
Date Performed: 03/11/2017 Time Performed: 01:58:50 PTAGE: 76 years EKG: Sinus rhythm NORMAL ECG PREVIOUS TRACING : 03/10/2017 22.04 Since previous tracing, no significant change noted DOCTOR: Syed Carvajal Interpretating Date/Time 03/11/2017 15:37:38
--- NOTE | 2017-03-11 15:40 | EKG ---
Date Performed: 03/10/2017 Time Performed: 20:05:51 PTAGE: 76 years EKG: Sinus rhythm ABNORMAL ECG PREVIOUS TRACING : 10/21/2016 14.36 Since previous tracing, no significant change noted DOCTOR: Syed Carvajal Interpretating Date/Time 03/11/2017 15:39:06
--- NOTE | 2017-03-11 15:42 | EKG ---
Date Performed: 03/11/2017 Time Performed: 05:33:13 PTAGE: 76 years EKG: Sinus rhythm SEPTAL MYOCARDIAL INFARCTION ABNORMAL ECG PREVIOUS TRACING : 03/11/2017 01.58 Since previous tracing, no significant change noted DOCTOR: Syed Carvajal Interpretating Date/Time 03/11/2017 15:41:06
[2017-03-11] MEDS ORDERED: METOPROLOL SUCCINATE 50 MG EXTENDED RELEASE TAB PO SCH (21:00)
[2017-03-11] MEDS ORDERED: GABAPENTIN 300 MG CAP PO SCH (21:00)
[2017-03-11] MEDS ORDERED: TOLTERODINE TARTRATE 2 MG CAP LA PO SCH (21:00)
== END 2017-03-11 11:28 | disposition home or self-care (01) ==
LOC: NEPE 17:39 → NEDA 23:05 → NEPHCDU 03-11 00:49
PROVIDERS: ADMIT Internal Medicine Interventional Cardiology; ATTEND Internal Medicine Interventional Cardiology
DX: I10 Essential (primary) hypertension (principal); R07.89 Other chest pain; G35 Multiple sclerosis; E03.9 Hypothyroidism, unspecified; D64.9 Anemia, unspecified; I48.0 Paroxysmal atrial fibrillation; Z91.14 Patient's other noncompliance with medication regimen; R94.31 Abnormal electrocardiogram [ECG] [EKG]; M19.90 Unspecified osteoarthritis, unspecified site; K21.9 Gastro-esophageal reflux disease without esophagitis; Z79.899 Other long term (current) drug therapy; Z79.82 Long term (current) use of aspirin
CPT/HCPCS: 71010; 80048; 82550; 83735; 84484; 85025; 85610; 85730; 93005; 96374; 99285; G0378

== ENCOUNTER → 2017-05-19 | Outpatient (CLI) | payer MEDICARE, OTHER ==
[~2017-05-19] MED LIST changes: +AMLO5 PO; -DEXI60CA PO; +DEXI60CA2 PO; +FEMH0.5T PO; +FURO1TAB62 PO; -HYDR25TA5 PO; -LISI-519 PO; -ONDA1TAB16 PO; -PACE200T PO; +VAGI10TA VAGINAL; +VESI5TAB PO
== END ==
LOC: CLAB 10:08
PROVIDERS: ATTEND Psychiatry & Neurology Neurology
DX: E53.8 Deficiency of other specified B group vitamins (principal)
CPT/HCPCS: 36415; 82607